=== PATIENT | female | born 1945 | race Caucasian/White ===

== ENCOUNTER → 2018-04-18 09:47 | Outpatient (CLI) | payer MEDICARE, OTHER, SELFPAY ==
[2018-04-18 10:58] LABS: Alanine Aminotransferase 40 IU/L (9-52); Albumin Globulin Ratio 1.4 (1.0-2.8); Alkaline Phosphatase 99 U/L (38-126); Aspartate Aminotransferase 31 IU/L (14-36); BUN Creatinine Ratio 37.8 (6-22); Bilirubin Total 0.7 mg/dL (0.2-1.3); Blood Urea Nitrogen 34 mg/dL (7-17); Calcium 9.4 mg/dL (8.4-10.2); Carbon Dioxide 27 mmol/L (22-32); Chloride 102 mmol/L (98-107); Cholesterol 148 mg/dL (140-199); Estimated Glomerular Filt Rate > 60.0 mL/min (>60); Globulin 2.9 g/dL (1.7-4.1); Glucose 148 mg/dL (80-110); HDL Cholesterol 52 mg/dL (40-60); HEMOLYSIS 22 (0-50); LDL Cholesterol Calculated 66 mg/dL (<100); Sodium 139 mmol/L (137-145); Total Protein 6.9 g/dL (6.3-8.2); Triglycerides 148 mg/dL (35-150); Uric Acid 5.8 mg/dL (2.5-6.2)
[2018-04-18 11:26] LABS: Hemoglobin A1C% w Est Avg Glu 6.8 % (4.0-6.0)
[2018-04-18 12:02] LABS: Thyroid Stimulating Hormone 2.31 uIU/mL (0.47-4.68)
[2018-04-18 12:07] LABS: Creatinine Urine Random 93.2 mg/dL
[2018-04-18 12:11] LABS: Microalbumi Creatinin Ratio Ur 11.8 ug/mg CR (<30); Microalbumin Urine Random 1.1 mg/dL (0-1.6)
== END ==
PROVIDERS: Family Provider Physician Assistant; PCP Physician Assistant; Visit Provider Physician Assistant
DX: I10 Essential (primary) hypertension (principal); M10.9 Gout, unspecified; E03.9 Hypothyroidism, unspecified; E11.9 Type 2 diabetes mellitus without complications; E79.0 Hyperuricemia without signs of inflammatory arthritis and tophaceous disease
CPT/HCPCS: 36415; 80053; 80061; 82043; 82570; 83036; 84443; 84550

== ENCOUNTER → 2018-08-29 09:09 | Outpatient (CLI) | payer MEDICARE, OTHER, SELFPAY ==
[2018-08-29 10:08] LABS: Hemoglobin A1C% w Est Avg Glu 6.5 % (4.0-6.0)
[2018-08-29 10:12] LABS: Blood Urea Nitrogen 31 mg/dL (7-17); Calcium 9.2 mg/dL (8.4-10.2); Carbon Dioxide 27 mmol/L (22-32); Chloride 102 mmol/L (98-107); Estimated Glomerular Filt Rate 54.1 mL/min (>60); Glucose 151 mg/dL (80-110); HEMOLYSIS < 15 (0-50); Sodium 142 mmol/L (137-145)
== END ==
PROVIDERS: Family Provider Physician Assistant; PCP Physician Assistant; Visit Provider Physician Assistant
DX: E11.9 Type 2 diabetes mellitus without complications (principal); I10 Essential (primary) hypertension
CPT/HCPCS: 36415; 80048; 83036

== ENCOUNTER → 2018-09-10 11:44 | Outpatient (CLI) | payer MEDICARE, OTHER, SELFPAY ==
[2018-09-12 15:18] LABS: Fecal Immunochemical Test NOT DETECTED
== END ==
PROVIDERS: PCP Physician Assistant; Visit Provider Physician Assistant
DX: Z12.11 Encounter for screening for malignant neoplasm of colon (principal)
CPT/HCPCS: 82274

== ENCOUNTER → 2018-09-28 13:20 | Outpatient (CLI) | payer MEDICARE, OTHER, SELFPAY ==
--- NOTE | 2018-09-28 13:21 | DI.MG.S_ITS ---
BILATERAL DIGITAL SCREENING MAMMOGRAM 3D/2D WITH CAD: 09/28/2018 CLINICAL: Routine screening. Family history of breast cancer. Comparison is made to exams dated: 09/14/2017 mammogram, 09/12/2016 mammogram, and 09/10/2015 mammogram - [facility]. There are scattered fibroglandular elements in both breasts. Current study was also evaluated with a Computer Aided Detection (CAD) system. There are benign calcifications in both breasts. No significant masses, calcifications, or other findings are seen in either breast. There has been no significant interval change. IMPRESSION: There is no mammographic evidence of malignancy. A 1 year screening mammogram is recommended. This exam was interpreted at Station ID: [id number]. NOTE: For mammograms, a report in lay terms will be sent to the patient. Approximately 15% of breast malignancies will not be visualized mammographically. In the management of a palpable breast mass, a negative mammogram must not discourage biopsy of a clinically suspicious lesion. Electronically Signed By: Carter couch/joe:09/28/2018 16:42:17 letter sent: Normal Exam ACR BI-RADS Category 2: Benign Finding(s) 3342F
== END ==
PROVIDERS: Family Provider Physician Assistant; PCP Physician Assistant; Visit Provider Physician Assistant
DX: Z12.31 Encounter for screening mammogram for malignant neoplasm of breast (principal); Z80.3 Family history of malignant neoplasm of breast
CPT/HCPCS: 77063; 77067

== ENCOUNTER → 2018-11-14 10:03 | Outpatient (CLI) | payer MEDICARE, OTHER, SELFPAY ==
[2018-11-14 12:07] LABS: Blood Urea Nitrogen 22 mg/dL (7-17); Calcium 9.8 mg/dL (8.4-10.2); Carbon Dioxide 29 mmol/L (22-32); Chloride 98 mmol/L (98-107); Estimated Glomerular Filt Rate 54.1 mL/min (>60); Glucose 150 mg/dL (80-110); HEMOLYSIS < 15 (0-50); Potassium 4.3 mmol/L (3.4-5.1); Sodium 139 mmol/L (137-145)
== END ==
PROVIDERS: Family Provider Physician Assistant; PCP Physician Assistant; Visit Provider Physician Assistant
DX: E11.9 Type 2 diabetes mellitus without complications (principal); I10 Essential (primary) hypertension
CPT/HCPCS: 36415; 80048

== ENCOUNTER → 2019-04-25 09:16 | Outpatient (CLI) | payer MEDICARE, OTHER, SELFPAY ==
[2019-04-25 11:34] LABS: BUN Creatinine Ratio 28.9 (6-22); Blood Urea Nitrogen 26 mg/dL (7-17); Calcium 9.5 mg/dL (8.4-10.2); Carbon Dioxide 28 mmol/L (22-32); Chloride 102 mmol/L (98-107); Estimated Glomerular Filt Rate > 60.0 mL/min (>60); Glucose 137 mg/dL (80-110); HEMOLYSIS < 15 (0-50); Potassium 4.8 mmol/L (3.4-5.1); Sodium 139 mmol/L (137-145)
== END ==
PROVIDERS: PCP Physician Assistant; Visit Provider Physician Assistant
DX: E11.9 Type 2 diabetes mellitus without complications (principal); I10 Essential (primary) hypertension; R94.4 Abnormal results of kidney function studies
CPT/HCPCS: 36415; 80048

== ENCOUNTER → 2019-05-29 08:54 | Outpatient (CLI) | payer MEDICARE, OTHER, SELFPAY ==
[2019-05-29 09:52] LABS: Alanine Aminotransferase 27 IU/L (9-52); Albumin Globulin Ratio 1.4 (1.0-2.8); Alkaline Phosphatase 110 U/L (38-126); Aspartate Aminotransferase 26 IU/L (14-36); Bilirubin Total 0.7 mg/dL (0.2-1.3); Bilirubin Unconjugated 0.5 mg/dL (0.0-1.1); Cholesterol 155 mg/dL (140-199); Globulin 2.8 g/dL (1.7-4.1); HDL Cholesterol 53 mg/dL (40-60); HEMOLYSIS < 15 (0-50); LDL Cholesterol Calculated 60 mg/dL (<100); Total Protein 6.8 g/dL (6.3-8.2); Triglycerides 208 mg/dL (35-150); Uric Acid 5.1 mg/dL (2.5-6.2)
[2019-05-29 10:23] LABS: Thyroid Stimulating Hormone 2.01 uIU/mL (0.47-4.68)
[2019-05-29 16:04] LABS: Creatinine Urine Random 123.6 mg/dL
[2019-05-29 16:06] LABS: Microalbumi Creatinin Ratio Ur 17.7 ug/mg CR (<30); Microalbumin Urine Random 2.2 mg/dL (0-1.6)
== END ==
PROVIDERS: PCP Physician Assistant; Visit Provider Physician Assistant
DX: E03.9 Hypothyroidism, unspecified (principal); E11.9 Type 2 diabetes mellitus without complications; E79.0 Hyperuricemia without signs of inflammatory arthritis and tophaceous disease; I10 Essential (primary) hypertension
CPT/HCPCS: 36415; 80061; 80076; 82043; 82570; 83036; 84443; 84550

== ENCOUNTER → 2019-08-27 10:13 | Outpatient (CLI) | payer MEDICARE, OTHER, SELFPAY ==
[2019-08-27 12:30] LABS: Hemoglobin A1C% w Est Avg Glu 6.3 % (4.0-6.0)
== END ==
PROVIDERS: PCP Physician Assistant; Visit Provider Physician Assistant
DX: E11.9 Type 2 diabetes mellitus without complications (principal); I10 Essential (primary) hypertension
CPT/HCPCS: 83036

== ENCOUNTER → 2019-09-16 12:22 | Outpatient (CLI) | payer MEDICARE, OTHER, SELFPAY ==
[2019-09-18 17:40] LABS: Fecal Immunochemical Test NOT DETECTED (NOT DETECTED)
== END ==
PROVIDERS: PCP Physician Assistant; Visit Provider Physician Assistant
DX: Z12.11 Encounter for screening for malignant neoplasm of colon (principal)
CPT/HCPCS: 82274

== ENCOUNTER → 2019-09-30 11:30 | Outpatient (CLI) | payer MEDICARE, OTHER, SELFPAY ==
--- NOTE | 2019-09-30 11:32 | DI.MG.S_ITS ---
BILATERAL DIGITAL SCREENING MAMMOGRAM 3D/2D WITH CAD: 09/30/2019 CLINICAL: Routine screening. Family history of breast cancer. Comparison is made to exams dated: 09/28/2018 mammogram, 09/14/2017 mammogram, 09/12/2016 mammogram, 09/10/2015 mammogram, and 09/08/2014 mammogram - [facility]. There are scattered fibroglandular elements in both breasts. Current study was also evaluated with a Computer Aided Detection (CAD) system. There are benign calcifications in both breasts. No significant masses, calcifications, or other findings are seen in either breast. There has been no significant interval change. IMPRESSION: There is no mammographic evidence of malignancy. A 1 year screening mammogram is recommended. This exam was interpreted at Station ID: [id number]. NOTE: For mammograms, a report in lay terms will be sent to the patient. Approximately 15% of breast malignancies will not be visualized mammographically. In the management of a palpable breast mass, a negative mammogram must not discourage biopsy of a clinically suspicious lesion. Electronically Signed By: Roddy gupta/joe:09/30/2019 17:43:31 letter sent: Normal Exam ACR BI-RADS Category 2: Benign Finding(s) 3342F
== END ==
PROVIDERS: PCP Physician Assistant; Visit Provider Physician Assistant
DX: Z12.31 Encounter for screening mammogram for malignant neoplasm of breast (principal); Z80.3 Family history of malignant neoplasm of breast; M81.0 Age-related osteoporosis without current pathological fracture; Z78.0 Asymptomatic menopausal state; E11.9 Type 2 diabetes mellitus without complications; E07.9 Disorder of thyroid, unspecified; Z82.62 Family history of osteoporosis
CPT/HCPCS: 77063; 77067; 77080

== ENCOUNTER → 2020-06-05 15:20 | Outpatient (CLI) | payer MEDICARE, OTHER, SELFPAY ==
[2020-06-05 16:39] LABS: Add Manual Diff / Slide Review NO; Basophils Absolute Auto 100 /uL (0-100); Basophils Percent Auto 0.9 % (0-2); Eosinophils Absolute Auto 100 /uL (0-450); Eosinophils Percent Auto 0.7 % (2-4); Hematocrit 43.1 % (36-46); Lymphocytes Absolute Auto 1900 /uL (1100-4500); Lymphocytes Percent Auto 25.3 % (25-40); Mean Corpuscular HGB Conc 34.7 % (30-36); Mean Corpuscular Hemoglobin 31.9 PG (26-34); Monocytes Absolute Auto 500 /uL (0-900); Neutrophils Absolute Auto 4900 /uL (1500-7000); Neutrophils Percent Auto 66.1 % (50-75); Platelet Count 218 X10^3/uL (150-400); Red Blood Cell Count 4.69 X10^6/uL (4.0-5.2); Red Cell Distribution Width 14.1 % (11.6-14.8); White Blood Cell Count 7.5 X10^3/uL (4.5-11.0)
[2020-06-05 16:45] LABS: Hemoglobin A1C% w Est Avg Glu 6.7 % (4.0-6.0)
[2020-06-05 16:51] LABS: Carbon Dioxide 29 mmol/L (22-32); Chloride 101 mmol/L (98-107); HEMOLYSIS < 15 (0-50); Potassium 4.2 mmol/L (3.4-5.1); Sodium 136 mmol/L (137-145)
== END ==
PROVIDERS: PCP Nurse Practitioner Family; Referring Provider Orthopaedic Surgery; Visit Provider Orthopaedic Surgery
DX: Z01.818 Encounter for other preprocedural examination (principal); Z01.812 Encounter for preprocedural laboratory examination; R73.9 Hyperglycemia, unspecified
CPT/HCPCS: 36415; 80051; 83036; 85025; 93005

== ENCOUNTER → 2020-06-12 10:30 | Outpatient (CLI) | payer MEDICARE, OTHER, SELFPAY ==
[2020-06-12 11:04] LABS: RBC Urine None Seen (0-5/HPF)
[2020-06-12 12:04] LABS: Appearance Urine UA CLEAR; Bilirubin Urine UA NEGATIVE (NEGATIVE); Color Urine UA YELLOW; Glucose Urine UA NEGATIVE (Negative); Ketones Urine UA NEGATIVE (NEGATIVE); Leukocyte Esterase Urine UA NEGATIVE (NEGATIVE); Nitrite Urine UA NEGATIVE (Negative); Occult Blood Urine UA NEGATIVE (Negative); Protein Urine UA NEGATIVE (Negative); Urobilinogen Urine UA 0.2 E.U./dL (0.2)
[2020-06-12 12:17] LABS: Amorphous Sediment Urine 1+; Bacteria Urine Occasional (0-1); Culture Indicated Urine Cult Not Indicated; Squamous Epithelial Cell Urine 5-10 /HPF (0-5/HPF); WBC Urine 0-1/HPF (0-5/HPF)
[2020-06-12 12:26] LABS: Alanine Aminotransferase 25 IU/L (<35); Albumin 4.1 g/dL (3.5-5.0); Albumin Globulin Ratio 1.7 (1.0-2.8); Alkaline Phosphatase 105 U/L (38-126); Aspartate Aminotransferase 26 IU/L (14-36); BUN Creatinine Ratio 22.2 (6-22); Bilirubin Total 0.8 mg/dL (0.2-1.3); Blood Urea Nitrogen 20 mg/dL (7-17); Calcium 9.9 mg/dL (8.4-10.2); Carbon Dioxide 31 mmol/L (22-32); Chloride 101 mmol/L (98-107); Estimated Glomerular Filt Rate > 60.0 mL/min (>60); Globulin 2.4 g/dL (1.7-4.1); Glucose 153 mg/dL (80-110); HEMOLYSIS < 15 (0-50); Potassium 4.3 mmol/L (3.4-5.1); Sodium 136 mmol/L (137-145); Total Protein 6.5 g/dL (6.3-8.2)
== END ==
PROVIDERS: PCP Nurse Practitioner Family; Referring Provider Nurse Practitioner Family; Visit Provider Nurse Practitioner Family
DX: Z00.00 Encounter for general adult medical examination without abnormal findings (principal); Z01.818 Encounter for other preprocedural examination
CPT/HCPCS: 36415; 80053; 81001

== ENCOUNTER → 2020-06-28 17:56 | Outpatient (ROUT) | payer MEDICARE, OTHER, SELFPAY ==
[2020-06-29 22:54] LABS: COVID19 Sendout Not Detected (Not Detected)
== END ==
PROVIDERS: PCP Nurse Practitioner Family; Visit Provider Physician Assistant
DX: Z11.59 Encounter for screening for other viral diseases (principal)
CPT/HCPCS: 87635

== ENCOUNTER 2020-07-02 12:44 | Inpatient (IN) | payer MEDICARE, OTHER, SELFPAY ==
[2020-06-23 13:52] VITALS: BMI 40.8
[2020-07-01] VITALS (13 sets, daily range): BP systolic 123–150; BP diastolic 57–89; PULSE 77–102; RESP 11–20; TEMP 36.2–37.3; O2SAT 91–97; BMI 40.8
--- NOTE | 2020-07-01 06:00 | DI.RAD.S_ITS ---
PROCEDURE: XR KNEE LT 1TO2V INDICATIONS: post op films TECHNIQUE: To view(s) of the knee acquired. COMPARISON: None. FINDINGS: Bones: Patient is status post knee joint arthroplasty. Hardware components are in expected positions. Visualized bony structures are intact. Soft tissues: Overlying postoperative changes are noted. IMPRESSION: Normal alignment after left total knee arthroplasty. Dictated by: Fam Stevens M.D. on 07/02/2020 at 8:07 Approved by: Fam Stevens M.D. on 07/02/2020 at 8:07
[2020-07-01] MEDS: LACTATED RINGERS 1,000 ML 42 ML IV (12:14)
[2020-07-01] MEDS: ACETAMINOPHEN 325 MG TABLET 975 MG PO (12:20)
[2020-07-01] MEDS: CELECOXIB 200 MG CAPSULE PO (12:21)
[2020-07-01] MEDS: PREGABALIN 75 MG CAPSULE PO (12:21)
--- NOTE | 2020-07-01 12:58 | PM.PREOP ---
Pre-operative Note COVID-19 COVID-19 status: Negative Result date/Date tested (Pos, Neg/Pending): 06/28/20 Interval Note History & Physical reviewed/Exam performed by Physician: Yes Changes to H&P: No
--- NOTE | 2020-07-01 12:59 | PM.OP.1 ---
Operative Date/Time/Diagnoses Date of procedure: 07/01/20 Time of procedure: 16:20 Pre-op diagnosis: Left knee osteoarthritis Post-op diagnosis: same Procedure & Clinicians Procedure: Left total knee arthroplasty Same procedure as scheduled: Yes Indications: The patient presents today for total knee arthroplasty after failure of conservative treatment. The nature of the procedure including the risks and benefits, alternatives, postoperative course and expected outcome were discussed and all questions answered. Consent was obtained. Operative site confirmed and marked. Surgeon: Carter Urban Belt Machine Operator: Michael Weiner Anesthesia Type: General, Spinal and Local Operative Notes Closure Type: primary Specimen(s): none sent Prosthetic devices, grafts, tissues, transplants, or devices: [facility] BCS: 5 femoral component, 4 tibial component, 9 mm BCS polyethylene tray and 35 x 9 mm round patella Applied: implant(s) Estimated Blood Loss (mL): 10 Blood products transfused: none Tourniquet time (min): 55 Procedure in detail: The patient was taken to the operative suite and placed under anesthesia. The patient was given prophylactic antibiotics prior to surgery. The patient was also given tranexamic acid, 1 g, just prior to surgery for postoperative hemostasis. The lateral knee was prepped and the joint injected with 20 mL of 1% Lidocaine with epinephrine. The knee was then prepped and draped in usual sterile fashion. The leg was exsanguinated with an Esmarch dressing and the tourniquet raised to 250 torr. A 15 cm anterior incision was made. Next a medial trivector arthrotomy was made. The extensor mechanism was marked to ensure accurate repair. Initial exposing dissection was carried out medially and laterally. The knee was then flexed and the intramedullary femoral guide justin placed. The distal femoral cut was made in 6? of valgus at the +0 position. The femoral size was measured and the appropriate cutting block was then placed and the anterior, posterior and chamfer cuts made. The intramedullary tibial alignment justin was then placed. The guide was set to remove approximately 11 mm from the less affected lateral side. The proximal tibial cut was then made with an oscillating saw. All meniscus and bony debris was then removed. Posterior femoral osteophytes removed with a curved osteotome. Flexion extension gaps were checked. No specific balancing was required other than routine exposure and removal of osteophytes. The soft tissues were then injected with a combination of 20 mL of half percent Marcaine with epinephrine and 20 mL of Exparel. The trial components were then placed. The knee was then extended and the patellar thickness was measured and a cut made removing approximately 9 mm of bone. The patella was then sized and drilled. Some excess lateral bone was excised and the patellofemoral ligament released. The knee went into full extension and flexion beyond 130?. There was good medial-lateral balance throughout motion. The knee was slightly tighter medially in flexion than extension. Patellar tracking was excellent. The trial components were removed and the knee was cleansed with Pulsavac irrigation and dried. The final components were cemented with high viscosity vacuum mixed bone cement with antibiotics. The joint was filled with a dilute Betadine solution. The knee was held in extension and the patellar clamped until the cement was adequately cured. The knee was then irrigated. The extensor mechanism was closed with 5 interrupted #1 Vicryl sutures and a running Quill suture at approximately 90 degrees of flexion. The joint was then injected with a combination of 1 g of tranexamic acid and 20 mL of quarter percent Marcaine with epinephrine. The subcutaneous tissue was closed with 2 0 Vicryl. The skin was closed with absorbable subcuticular sutures and surgical adhesive. An benjamin dressing and Jaxon wrap were then applied. The patient tolerated the procedure well and was returned to recovery room in good condition. Complications: none Post-operative Condition: stable Disposition: PACU Plan for aftercare: [facility] Protocol.
[2020-07-01] MEDS: CLINDAMYCIN 900 MG/50 ML PIGGYBACK 50 MG IV (15:10)
[2020-07-01] MEDS: LIDOCAINE 1% W/EPI 20 ML INJ (15:15)
[2020-07-01] MEDS: TRANEXAMIC ACID 1,000 MG VIAL 1000 MG INJ (15:25)
--- NOTE | 2020-07-01 15:34 | SUR.OPER ---
Supine on padded OR bed. Pillow under head, arms secured on padded armboards <90 degree abduction. Safety belt across torso. Non-operative leg secured with tape over blanket over lower leg. Operative leg secured in DeMayo/Parmjit positioner. Foam padded brace at thigh of operative leg.
[2020-07-01] MEDS: BUPIVACAINE 0.25% W/ EPI (PF) 40 ML, BUPIVACAINE LIPOSOME 266 MG, SODIUM CHLORIDE 0.9% ... INJ (15:48)
[2020-07-01] MEDS: BUPIVACAINE 0.25% W/ EPI (PF) 20 ML, TRANEXAMIC ACID 1,000 MG, SODIUM CHLORIDE 0.9% 10 ML INJ (15:49)
[2020-07-01] MEDS: ONDANSETRON 4 MG/2 ML INJ IV (16:50)
[2020-07-01] MEDS: HYDROMORPHONE 2 MG INJ IV (16:50)
[2020-07-01] MEDS: hydrOXYzine 50 MG/ML INJ 25 MG IM (16:51)
[2020-07-01] MEDS: OXYCODONE IR 5 MG TABLET PO (17:09)
[2020-07-01] MEDS: METFORMIN XR 500 MG TABLET PO (18:37)
[2020-07-01] MEDS: LACTATED RINGERS 1,000 ML 100 ML IV (18:37)
[2020-07-01] MEDS: IBUPROFEN 400 MG TABLET PO ×2 (18:37→21:24)
[2020-07-01] MEDS: DOCUSATE 100 MG CAPSULE PO (21:23)
[2020-07-01] MEDS: ACETAMINOPHEN 325 MG TABLET 650 MG PO (21:23)
[2020-07-01] MEDS: ASPIRIN EC 81 MG TABLET PO (21:23)
[2020-07-01] MEDS: CLINDAMYCIN 600 MG/50 ML PIGGYBACK 50 MG IV (23:00)
[2020-07-02] VITALS (8 sets, daily range): BP systolic 106–130; BP diastolic 57–65; PULSE 67–78; RESP 15–17; TEMP 36.3–37.2; O2SAT 91–98
[2020-07-02] MEDS: IBUPROFEN 400 MG TABLET PO ×6 (01:19→21:01)
[2020-07-02] MEDS: LEVOTHYROXINE 100 MCG TABLET PO (06:02)
[2020-07-02] MEDS: CLINDAMYCIN 600 MG/50 ML PIGGYBACK 50 MG IV (06:02)
[2020-07-02] MEDS: hydroCHLOROthiazide 25 MG TABLET PO (08:34)
[2020-07-02] MEDS: lisinopriL 10 MG TABLET PO (08:34)
[2020-07-02] MEDS: DOCUSATE 100 MG CAPSULE PO ×2 (08:34→21:01)
[2020-07-02] MEDS: AMLODIPINE 5 MG TABLET 10 MG PO (08:34)
[2020-07-02] MEDS: ACETAMINOPHEN 325 MG TABLET 650 MG PO ×3 (08:34→21:01)
[2020-07-02] MEDS: ASPIRIN EC 81 MG TABLET PO ×2 (08:34→21:01)
[2020-07-02] MEDS: allopurinoL 300 MG TABLET PO (08:36)
--- NOTE | 2020-07-02 09:07 | CM.DANOTE ---
DCP: Case received, EMR reviewed and met with patient. Introduced self and role. Was able to meet with patient and obtain information regarding patient's baseline activity status and living situation prior to surgery. DCP assessment completed with information currently available. Patient is a 74 year old female who admitted yesterday morning to the care of the orthopedic team. PCP: MARLY Dunaway. Payer: confirmed: Medicare/[facility]. Patient came to the hospital via private vehicle for a surgical procedure. She had left knee arthroplasty. Patient has history of osteoarthritis. Met with patient in her room. She was sitting up in bed having her breakfast. Pleasant, alert and oriented. She has not yet worked with P.T. She resides in [place] alone, but has s son, Sacha, that lives in [place] as well. Patient is planning on having a friend stay with her for a while. She is independent at baseline. She indicated that her son built her a ramp to enter the home. She also has some grab bars in her home from when her mother lived with her. P: DCP to continue to follow. P.T. will be working with her. She should be able to go home when she is medically stable and cleared by P.T. Nisha Merchant RN/Religious Education Director
--- NOTE | 2020-07-02 09:15 | PT.IIE ---
Current Diagnoses Bilateral primary osteoarthritis of knee (07/01/20) Surgery Performed Operation Date: 07/01/20 13:15 Actual Procedures p Total Knee Arthroplasty(Left) - Carter Urban MD Surgical History (Last Updated 06/23/20 @ 14:17 by Nai Marie RN) History of repair of pyloric stenosis (Resolved 1942) Hx of arthroscopy of left knee (Acute 2009) Hx of arthroscopy of right knee (Acute) Hx of bilateral cataract extraction (Acute 2016) Status post cholecystectomy Medical History (Last Updated 06/23/20 @ 14:23 by Nai Marie RN) Cerumen impaction (Acute) Diabetes (Chronic Unknown) Gout (Acute) Hearing impaired (Acute) Hypertension (Chronic Unknown) Hypothyroidism (Chronic Unknown) Osteoarthritis (Chronic Unknown) Osteopenia (Chronic Unknown) Pre-procedural examination (Acute) Screening for heart disease (Acute) Screening for malignant neoplasm of colon (Acute) Sinus drainage (Acute) Urinary incontinence (Acute) Physical Therapy Inpatient Evaluation/Re-Eval M1 PT/OT-IP Prior Functional Status Start: 07/02/20 11:29 Freq: NEEDED Status: Active Protocol: Document 07/02/20 09:15 AB (Rec: 07/02/20 11:40 AB [id number]) Medical Review Prior Functional Status Medical History Reviewed Yes Communication able to make needs known Mobility and Gait Pt stated that she is independent with all mobilities and ambulation without AD Social History Household Members none Living Arrangements House Number of Floors (Floors) One Floor Number of Stairs To Enter/Railing? ramp to enter Home Environment Standard Height Toilet,Tub/ Shower,Ramp Home Equipment Front Wheel Walker,Straight Cane,Raised Toilet Seat w/ Armrests,Shower Seat without Backrest,Hand Held Shower,Grab Bars Near Toilet,Grab Bars In Shower Employment Status Retired Additional Social History Comment stated that she has friends that will assist and stay with her to assist her as long as needed M2 PT-IP Current Condition Start: 07/02/20 11:29 Freq: NEEDED Status: Active Protocol: Document 07/02/20 09:15 AB (Rec: 07/02/20 11:40 AB [email or web address]) Physical Therapy Current Condition Current Condition Evaluation Date 07/02/20 Treatment Diagnosis s/p L TKA; difficulty in walking Onset Date 07/01/20 Weight Bearing Status Weight Bearing Status Weight Bear as Tolerated Allowed Weight Bearing Amount (enter % LLE WBAT or #) (%) M3 PT-IP Subjective Start: 07/02/20 11:29 Freq: NEEDED Status: Active Protocol: Document 07/02/20 09:15 AB (Rec: 07/02/20 11:40 AB [email or web address]) Subjective Physical Therapy Visit Type Type Initial Evaluation Visit Start Time 09:15 Visit Stop Time 09:53 Total Visit Minutes 38 Number of ACCOUNT SERVICES MANAGER Visits 0 Physical Therapy Visit Comments Patient Comments pt is agreeable to do PT Therapy Pain Assessment Pain When Pain Assessed During Mobility Pain Present Pain Present Pain Reported Location Left Knee Intensity 3 Scale Used Numeric (0 - 10) Pain Management Techniques Apply Cold,Modification of Treatment,Re-positioning, Timing of Activity with Medications M4 PT-IP Mobility and Gait Start: 07/02/20 11:29 Freq: NEEDED Status: Active Protocol: Document 07/02/20 09:15 AB (Rec: 07/02/20 11:40 [email or web address]) PT-Bed Mobility Assessment Supine to Sit Supine to Sit Standby Assistance,1 Person Assistance PT-Transfer Assessment Sit to and From Stand Sit to and from Stand Minimal Assistance,1 Person Assistance,Use of Upper Extremities Equipment Transfer Assistive Device Gait Belt,Front Wheeled Walker Orthotic/Prosthetic Devices or Brace: No Transfers Transfer Destination Chair Transfer Technique ambulated using FWW Transfer Ability Level of Assist Minimal Assistance,1 Person Assistance,Use of Upper Extremities Comments Mobility Comments completed supine to sit SBA. pt was able to sit on EOB SBA. completed sit to stand min A and cues for techniques. ambulated in room ~ 40 ft using FWW min A and cues for L quads activation. agreed to sit up on chair. positioned on chair. call ight and table placed within reach. Gait Assessment Gait Gait Assistance Required: Minimum Assistance Distance (Feet) 40 Able to Maintain Weight Bearing Status Yes During Gait Assistive Devices Assistive Device Gait Belt,Front Wheeled Walker Orthotic/Prosthetic Devices or Brace: No Gait Deviations General Gait Pattern Antalgic,Step-to Gait Factors Limiting Gait Function Factors Limiting Gait Function Decreased Activity Tolerance, Decreased Strength,Difficulty Following Directions,Limited Range of Motion,Pain,Poor Balance,Poor Safety Awareness PT-Balance Assessment Sitting Balance and Reactions Static Sitting Balance Ability Normal Dynamic Sitting Balance Ability Good Standing Balance and Reactions Static Standing Balance Ability Fair Dynamic Standing Balance Ability Fair Device Used FWW M5 PT-IP Objective Assessments Start: 07/02/20 11:29 Freq: NEEDED Status: Active Protocol: Document 07/02/20 09:15 AB (Rec: 07/02/20 11:40 AB [email or web address]) Orientation Orientation/Cognition Level of Alertness Alert Orientation Name,Place,Situation Language Function Ability Hard of Hearing Safety Awareness Understands Safety Issues Memory Description No Deficits Noted Gross Range of Motion Lower Extremity ROM Assessment Left Impaired Impairments L knee flexion: ~ 70 deg Strength Lower Extremity Strength Assessment Left Impaired Hip 4-/5 Knee 3+/5 Coordination Assessment Gross Coordination Gross Coordination WNL Sensation Assessment Sensation Gross Sensation WNL Muscle Tone Muscle Tone WNL Yes M6 PT-IP Treatment Start: 07/02/20 11:29 Freq: NEEDED Status: Active Protocol: Document 07/02/20 09:15 AB (Rec: 07/02/20 11:40 AB [email or web address]) Physical Therapy Treatment Exercises Exercises Heel Slides Education Education Provided Precautions,Weight Bearing Status,Post-Op Packet,Safety M7 PT-IP Assessment and Plan Start: 07/02/20 11:29 Freq: NEEDED Status: Active Protocol: Document 07/02/20 09:15 AB (Rec: 07/02/20 11:40 AB [email or web address]) PT Summary Assessment and Plan Potential Rehabilitation Potential Good Status of Condition at Evaluation Stable Summary Impairments Pain,ROM,Strength,Balance,Bed Mobility,Transfers,Gait, Activity Tolerance Assessment Summary pt requiring min A with mobility and will likely progress during hospital stay. pt will have her friends assist her at home and stated that she is set up for outpt PT already. will conduct caregiver training if appropriate. Goals Bed Mobility Goal Independent Transfer Goal Independent,Front Wheeled Walker Gait Goal Independent,Front Wheel Walker Gait Distance 150 Days to Meet Goals 3 Frequency of Treatment Frequency Of Treatment Twice a Day Treatment Plan Physical Therapy Treatment Plan Bed Mobility Training,Transfer Training,Gait Training, Therapeutic Exercise,Balance Retraining,Post Op Education, Discharge Planning,Hot or Cold Pack,Neuromuscular Re-ed, Coordination Retraining,Manual Therapy Other Recommendations and Next Treatment ambulation Focus Recommendations To Nursing Amount of Assist Needed 1 Person Assist Discharge Recommendations PT Discharge Recommendations Home with Assistance, Outpatient PT Transportation Needs at Discharge Private Vehicle
--- NOTE | 2020-07-02 09:25 | PM.PNPO.1 ---
Subjective Subjective Date Patient Seen: 07/02/20 Time Patient Seen: 09:25 Interval history: Patient denies fever chills. No nausea /vomiting. Pain is mild. Patient did not have physical therapy yesterday. Patient lives alone and will have friends assist her during the day as well as at night. Exam Vital Signs (past 8 hours): - 07/02/20 05:34 07/02/20 08:19 07/02/20 08:20 Temperature 97.7 F Pulse Rate 67 Respiratory Rate 16 16 Blood Pressure 118/61 Pulse Oximetry 95 98 94 Oxygen Delivery Method Room Air Oxygen Flow Rate 1 Narrative Exam Narrative: Pleasant 74-year-old female resting in bed in no apparent distress. Left knee dressing is clean, dry and intact. Mauro is on and functioning. Left leg is warm and dry. Motor functions intact bilateral lower extremities. Sensation grossly intact to light touch bilateral lower extremities. Objective Labs Result Diagrams: 07/02/20 05:50 Labs: Laboratory Results - last 24 hr 07/02/20 05:50 Hgb 13.0 Hct 38.0 Assessment & Plan Post-op Postoperative Procedures: Procedures Operation Date: 07/01/20 13:15 Actual Procedures Side Surgeon p Total Knee Arthroplasty Left Carter Urban MD Postop day 1 status post left total knee arthroplasty. Mobilize with physical therapy. Patient lives alone and is going to be relying on friends to assist her at home. Likely discharge home in 1-2 days. Quality VTE Deep Vein Thrombosis/Pulmonary Embolism Present on Admission: No
[2020-07-02] MEDS: OXYCODONE IR 5 MG TABLET PO (12:46)
--- NOTE | 2020-07-02 12:50 | PT.IPTN ---
Current Diagnoses Bilateral primary osteoarthritis of knee (07/02/20) Surgery Performed Operation Date: 07/01/20 13:15 Actual Procedures p Total Knee Arthroplasty(Left) - Carter Urban MD Physical Therapy Treatment Note M2 PT-IP Current Condition Start: 07/02/20 11:29 Freq: NEEDED Status: Active Protocol: Document 07/02/20 09:15 AB (Rec: 07/02/20 11:40 AB [email or web address]) Physical Therapy Current Condition Current Condition Evaluation Date 07/02/20 Treatment Diagnosis s/p L TKA; difficulty in walking Onset Date 07/01/20 Weight Bearing Status Weight Bearing Status Weight Bear as Tolerated Allowed Weight Bearing Amount (enter % LLE WBAT or #) (%) M3 PT-IP Subjective Start: 07/02/20 11:29 Freq: NEEDED Status: Active Protocol: Document 07/02/20 12:50 AB (Rec: 07/02/20 15:00 AB [email or web address]) Subjective Physical Therapy Visit Type Type Treatment Note Visit Start Time 12:50 Visit Stop Time 13:21 Total Visit Minutes 31 Number of UI ARCHITECT Visits 0 Physical Therapy Visit Comments Patient Comments Pt is agreeable to do PT Therapy Pain Assessment Pain When Pain Assessed At Rest Pain Present Pain Present Pain Reported Location Left Knee Intensity 2 Scale Used Numeric (0 - 10) Pain Management Techniques Modification of Treatment,Re- positioning,Timing of Activity with Medications M4 PT-IP Mobility and Gait Start: 07/02/20 11:29 Freq: NEEDED Status: Active Protocol: Document 07/02/20 12:50 AB (Rec: 07/02/20 15:00 AB [email or web address]) PT-Transfer Assessment Sit to and From Stand Sit to and from Stand Contact Guard Assistance,1 Person Assistance,Use of Upper Extremities Equipment Transfer Assistive Device Gait Belt,Front Wheeled Walker Transfers Transfer Destination Toilet Transfer Technique ambulated using FWW Transfer Ability Level of Assist Contact Guard Assistance, Minimal Assistance,1 Person Assistance,Use of Upper Extremities Comments Mobility Comments pt sitting on chair. completed LAQs and ankle pumps prior to mobilizing. completed sit to stand CGA and cues and ambulated in the hallway using FWW ~75 ft CGA to min A and cues for L quads activation. ambulated back to her room and requested to use the toilet. ambulated towards the toilet using FWW CGA to min A. completed sit to stand from the toilet using grab bar CGA and ambulated towards the sink CGA using FWW . pt was able to maintain standing SBA while completing handwashing. ambulated back to the chair using CGA. positioned on chair. call light and table placed within reach. Gait Assessment Gait Gait Assistance Required: Contact Guard Assist,Minimum Assistance Distance (Feet) 75 Able to Maintain Weight Bearing Status Yes During Gait Assistive Devices Assistive Device Gait Belt,Front Wheeled Walker Orthotic/Prosthetic Devices or Brace: No Gait Deviations General Gait Pattern Antalgic,Decreased Stride Length,Decreased Feet Clearance,Step-to Gait Factors Limiting Gait Function Factors Limiting Gait Function Decreased Activity Tolerance, Decreased Strength,Limited Range of Motion,Pain,Poor Balance,Poor Safety Awareness Comments Gait Comments pls refer to mobility section for details M5 PT-IP Objective Assessments Start: 07/02/20 11:29 Freq: NEEDED Status: Active Protocol: Document 07/02/20 09:15 AB (Rec: 07/02/20 11:40 AB [email or web address]) Orientation Orientation/Cognition Level of Alertness Alert Orientation Name,Place,Situation Language Function Ability Hard of Hearing Safety Awareness Understands Safety Issues Memory Description No Deficits Noted Gross Range of Motion Lower Extremity ROM Assessment Left Impaired Impairments L knee flexion: ~ 70 deg Strength Lower Extremity Strength Assessment Left Impaired Hip 4-/5 Knee 3+/5 Coordination Assessment Gross Coordination Gross Coordination WNL Sensation Assessment Sensation Gross Sensation WNL Muscle Tone Muscle Tone WNL Yes M6 PT-IP Treatment Start: 07/02/20 11:29 Freq: NEEDED Status: Active Protocol: Document 07/02/20 12:50 AB (Rec: 07/02/20 15:00 AB [email or web address]) Physical Therapy Treatment Exercises Exercises Ankle Pumps Education Education Provided Weight Bearing Status,Safety Other Treatments Other Treatment Performed completed LAQs with 5 sec hold reviewed HEP M7 PT-IP Assessment and Plan Start: 07/02/20 11:29 Freq: NEEDED Status: Active Protocol: Document 07/02/20 12:50 AB (Rec: 07/02/20 15:00 AB [email or web address]) PT Summary Assessment and Plan Potential Rehabilitation Potential Good Summary Impairments Pain,ROM,Strength,Balance, Coordination,Sensation,Tone, Cognition,Bed Mobility, Transfers,Gait,Activity Tolerance Progress Towards Goals Progressing Toward Goals Assessment Summary pt is progressing with mobility, requiring CGA to occasional min A with ambulation. pt plans to go home and will have her friends to assist her at home. will contine to assess progress. Goals Bed Mobility Goal Independent Transfer Goal Independent,Front Wheeled Walker Gait Goal Independent,Front Wheel Walker Gait Distance 150 Days to Meet Goals 3 Frequency of Treatment Frequency Of Treatment Twice a Day Treatment Plan Physical Therapy Treatment Plan Bed Mobility Training,Transfer Training,Gait Training, Therapeutic Exercise,Balance Retraining,Post Op Education, Discharge Planning,Hot or Cold Pack,Neuromuscular Re-ed, Coordination Retraining,Manual Therapy Other Recommendations and Next Treatment ambulation Focus Recommendations To Nursing Amount of Assist Needed 1 Person Assist Discharge Recommendations PT Discharge Recommendations Home with Assistance, Outpatient PT Transportation Needs at Discharge Private Vehicle
[2020-07-02] MEDS: METFORMIN XR 500 MG TABLET PO (16:57)
[2020-07-03] MEDS: IBUPROFEN 400 MG TABLET PO ×4 (00:09→12:18)
[2020-07-03 03:00] VITALS: BP 122/64; PULSE 67; RESP 16; TEMP 36.3; O2SAT 95
[2020-07-03] MEDS: LEVOTHYROXINE 100 MCG TABLET PO (06:15)
[2020-07-03 07:50] VITALS: BP 122/67; PULSE 73; RESP 18; TEMP 36.6; O2SAT 95
[2020-07-03] MEDS: ACETAMINOPHEN 325 MG TABLET 650 MG PO (08:13)
[2020-07-03] MEDS: ASPIRIN EC 81 MG TABLET PO (08:16)
[2020-07-03] MEDS: lisinopriL 10 MG TABLET PO (08:16)
[2020-07-03] MEDS: hydroCHLOROthiazide 25 MG TABLET PO (08:16)
[2020-07-03] MEDS: DOCUSATE 100 MG CAPSULE PO (08:16)
[2020-07-03] MEDS: AMLODIPINE 5 MG TABLET 10 MG PO (08:16)
[2020-07-03] MEDS: allopurinoL 300 MG TABLET PO (08:16)
--- NOTE | 2020-07-03 08:22 | PM.DS.1 ---
History of Present Illness History of Present Illness Date Patient Seen: 07/03/20 Time Patient Seen: 08:22 Chief complaint: SDC *OPB* Narrative: Patient admitted on 07/01/2020 for left total knee arthroplasty. Discharge Providers Provider Date of admission: 07/02/20 12:44 Discharge Date: 07/03/20 Primary care physician: MARLY Dunaway Consults: 07/01/20 17:36 Consult to Discharge Planning Routine Comment: Consult to Physical Therapy Evaluate & Treat Comment: Physician Instructions: postop TKA protocol Consult to Respiratory Therapy Evaluate & Treat Comment: Physician Instructions: Evaluate and treat Discharge provider: Carter Urban MD Summary Hospital Course Discharge Diagnosis: Left knee osteoarthritis Hospital Course: Patient had a left total knee arthroplasty on 07/01/2020. She is ready for discharge today. Status at Discharge Cognitive/behavioral status at discharge: oriented Functional status at discharge: uses cane/walker Overall status at discharge: patient is progressing back to baseline Time Spent with Patient Time spent: Less than 30 minutes Exam Vital Signs (past 8 hours): - 07/03/20 03:00 Temperature 97.4 F L Pulse Rate 67 Respiratory Rate 16 Blood Pressure 122/64 Pulse Oximetry 95 Oxygen Delivery Method Room Air Oxygen Flow Rate 0 Narrative Exam Narrative: The dressing is intact. There is expected swelling. The leg is neurovascularly intact. Objective Labs Result Diagrams: 07/02/20 05:50 Discharge Assessment & Plan Assessment and Plan Assessment: Status post left total knee arthroplasty now ready for discharge. Plan of Treatment: Discharge home per [facility] Protocol. Discharge Plan Discharge orders & Medications Discharge Orders: Discharge (Order); Ordered 07/03/20 Ordered By: Carter Urban Prescriptions: Continued aspirin [Adult Low Dose Aspirin] 81 mg tablet,delayed release (DR/EC) 81 mg PO DAILY RF: 0 cholecalciferol (vitamin D3) 2,000 unit capsule 2,000 unit PO DAILY RF: 0 naproxen sodium [Aleve] 220 MG tablet 440 mg PO DAILY PRN (Reason: Pain) Qty: 0 RF: 0 (DME) One Touch Ultra Mini Tst Strips Qty: 100 RF: 3 (DME) Disabled Parking Placard Qty: 1 RF: 0 hydrochlorothiazide 25 mg tablet 25 mg PO DAILY Qty: 90 RF: 1 amlodipine 10 mg tablet 10 mg PO DAILY Qty: 90 RF: 1 allopurinol 300 mg tablet 300 mg PO QDAY Qty: 90 RF: 1 lisinopril 10 mg tablet 10 mg PO Q DAY Qty: 90 RF: 0 metformin 500 mg tablet extended release 24 hr 500 mg PO QPM Qty: 90 RF: 0 levothyroxine 100 mcg tablet 100 mcg PO DAILY Qty: 90 RF: 1 clotrimazole-betamethasone 1-0.05 % cream 1 applictn TOP ONCE PRN (Reason: itching) Qty: 45 RF: 1 multivitamin Tablet 1 tab PO DAILY RF: 0 Shingrix (PF) 50 mcg/0.5 mL suspension for reconstitution 50 mcg IM ONCE Qty: 1 RF: 0 No Action calcium citrate 250 mg calcium Tablet 630 mg PO DAILY RF: 0 Follow up/Referrals: Lindsay Rodarte ARNP [Primary Care Provider] - Carter Urban MD [Physician] - Diet/Activity/Treatments Diet: Regular Activity: May progress weight-bearing activity as tolerated. Daily range of motion of the knee. Other treatments: Use ibuprofen 400 mg and Tylenol 500 mg every 4 hours in addition to the prescribed pain medication. Skin/Wound/Dressing Care Report to your healthcare provider any signs of infection, such as:: chills, fever, increased pain, unusual drainage and unusual redness Visit Report/Discharge Packet Instructions: DI for Knee Replacement, How to Prevent Falls, DI for Postoperative Pain, DI for Prescription Opioid Use, Oxycodone Stand Alone Forms: Patient Portal/API, Surgery Discharge Discharge Data Primary Care Provider: Lindsay Rodarte Quality VTE Deep Vein Thrombosis/Pulmonary Embolism Present on Admission: No
--- NOTE | 2020-07-03 09:15 | PC.NURSE ---
Addendum entered by Nancy De Los Santos R.N. 07/03/20 14:42: Spoke with Dr. Fraire around 1200 who was able to finalize discharge medication list to continue Calcium Citrate home med as per Dr. Urban. Pt states having all her personal belongings upon discharge. Discharge summary packet reviewed with pt. States already has follow up appointment sent. Pt has Miralax already at home. No further voiced concerns regarding discharge paperwork. pt's 2 friends are coming to crop picker pt for discharge. Pt expresses having good friend support for during the day and night. These 2 friends have no further plans for a month per pt and will aid in taking care of pt. Addendum entered by Nancy De Los Santos R.N. 07/03/20 11:42: DESTINEY May called and left message at 1136 to assist in finalizing discharge med list. Addendum entered by Nancy De Los Santos R.N. 07/03/20 11:06: Called Dr. Urban at 1105, No action noted on 1 medication on discharge med list. Unable to finalize med list. Dr. Urban states pt can resume all her home meds. Addendum entered by Nancy De Los Santos R.N. 07/03/20 10:53: Patient states that she already has Miralax at home to prevent constipation. Original Note: Day Shift- Pt A&OX4, able to make her needs known using call light. OOB this AM to BSC for urinary urgency, pt has history of dribbling also. Pt able to move herself in/out of bed with slow movements. Used walker to BSC. Pt states pain to left knee incision area is 2-4/1- with movement and 1/10 with rest most of the time. Left knee incision covered with CDI ANGEL dressing and sukhi wrap. CMS+, pt denies any numbness or tingling. Calf SCD's on BLE. Pt plans for discharge after lunch, her friends will be coming to pick her up.
--- NOTE | 2020-07-03 09:25 | PT.IPTN ---
Current Diagnoses Bilateral primary osteoarthritis of knee (07/02/20) Surgery Performed Operation Date: 07/01/20 13:15 Actual Procedures p Total Knee Arthroplasty(Left) - Carter Urban MD Physical Therapy Treatment Note M2 PT-IP Current Condition Start: 07/02/20 11:29 Freq: NEEDED Status: Active Protocol: Document 07/02/20 09:15 AB (Rec: 07/02/20 11:40 AB [email or web address]) Physical Therapy Current Condition Current Condition Evaluation Date 07/02/20 Treatment Diagnosis s/p L TKA; difficulty in walking Onset Date 07/01/20 Weight Bearing Status Weight Bearing Status Weight Bear as Tolerated Allowed Weight Bearing Amount (enter % LLE WBAT or #) (%) M3 PT-IP Subjective Start: 07/02/20 11:29 Freq: NEEDED Status: Active Protocol: Document 07/03/20 09:25 AB (Rec: 07/03/20 12:46 AB [id number]) Subjective Physical Therapy Visit Type Type Treatment Note Visit Start Time 09:25 Visit Stop Time 09:57 Total Visit Minutes 32 Number of SENIOR ELECTRICAL DESIGN ENGINEER Visits 0 Physical Therapy Visit Comments Patient Comments pt is agreeable to do PT Therapy Pain Assessment Pain When Pain Assessed At Rest Pain Present Pain Present Pain Reported Location Left Knee Intensity 3 Scale Used Numeric (0 - 10) Pain Management Techniques Re-positioning,Timing of Activity with Medications M4 PT-IP Mobility and Gait Start: 07/02/20 11:29 Freq: NEEDED Status: Active Protocol: Document 07/03/20 09:25 AB (Rec: 07/03/20 12:46 AB [email or web address]) PT-Bed Mobility Assessment Supine to Sit Supine to Sit Standby Assistance PT-Transfer Assessment Sit to and From Stand Sit to and from Stand Standby Assistance,1 Person Assistance Equipment Transfer Assistive Device Gait Belt,Front Wheeled Walker Orthotic/Prosthetic Devices or Brace: No Transfers Transfer Destination Toilet Transfer Technique ambulated using FWW Transfer Ability Level of Assist Standby Assistance Comments Mobility Comments completed supine to sit SBA, sit to stand SBA and ambulated to the toilet using FWW SBA. pt was able to complete toileting SBA. completed sit to stand from the toilet SBA and ambulated towards the sink SBA. pt was able to maintain standing SBA while completing handwashing. agreed to ambulate more and completed ~ 60 ft using FWW SBA. pt sat up on chair and assisted with positioning. call light and table placed within reach. Gait Assessment Gait Gait Assistance Required: Standby Assistance Distance (Feet) 60 Able to Maintain Weight Bearing Status Yes During Gait Assistive Devices Assistive Device Gait Belt,Front Wheeled Walker Orthotic/Prosthetic Devices or Brace: No Gait Deviations General Gait Pattern Antalgic,Decreased Stride Length,Decreased Feet Clearance,Step-to Gait Factors Limiting Gait Function Factors Limiting Gait Function Decreased Activity Tolerance, Decreased Strength,Limited Range of Motion,Pain,Poor Balance,Poor Safety Awareness Comments Gait Comments pls refer to mobility section for details M5 PT-IP Objective Assessments Start: 07/02/20 11:29 Freq: NEEDED Status: Active Protocol: Document 07/02/20 09:15 AB (Rec: 07/02/20 11:40 AB [email or web address]) Orientation Orientation/Cognition Level of Alertness Alert Orientation Name,Place,Situation Language Function Ability Hard of Hearing Safety Awareness Understands Safety Issues Memory Description No Deficits Noted Gross Range of Motion Lower Extremity ROM Assessment Left Impaired Impairments L knee flexion: ~ 70 deg Strength Lower Extremity Strength Assessment Left Impaired Hip 4-/5 Knee 3+/5 Coordination Assessment Gross Coordination Gross Coordination WNL Sensation Assessment Sensation Gross Sensation WNL Muscle Tone Muscle Tone WNL Yes M6 PT-IP Treatment Start: 07/02/20 11:29 Freq: NEEDED Status: Active Protocol: Document 07/03/20 09:25 AB (Rec: 07/03/20 12:46 AB [email or web address]) Physical Therapy Treatment Education Education Provided Safety M7 PT-IP Assessment and Plan Start: 07/02/20 11:29 Freq: NEEDED Status: Active Protocol: Document 07/03/20 09:25 AB (Rec: 07/03/20 12:46 AB [email or web address]) PT Summary Assessment and Plan Potential Rehabilitation Potential Good Summary Impairments Pain,ROM,Strength,Balance, Coordination,Sensation,Tone, Cognition,Bed Mobility, Transfers,Gait,Activity Tolerance Progress Towards Goals Progressing Toward Goals Assessment Summary pt is progressing with mobility and plans to go home later today. pt will have her friends assist her at home. Goals Bed Mobility Goal Independent Transfer Goal Independent,Front Wheeled Walker Gait Goal Independent,Front Wheel Walker Gait Distance 150 Days to Meet Goals 3 Frequency of Treatment Frequency Of Treatment Twice a Day Treatment Plan Physical Therapy Treatment Plan Bed Mobility Training,Transfer Training,Gait Training, Therapeutic Exercise,Balance Retraining,Post Op Education, Discharge Planning,Hot or Cold Pack,Neuromuscular Re-ed, Coordination Retraining,Manual Therapy Other Recommendations and Next Treatment ambulation Focus Recommendations To Nursing Amount of Assist Needed 1 Person Assist Discharge Recommendations PT Discharge Recommendations Home with Assistance, Outpatient PT Transportation Needs at Discharge Private Vehicle
[2020-07-03 12:01] VITALS: BP 118/57; PULSE 72; RESP 15; TEMP 36.1; O2SAT 93
[2020-07-03] MEDS: OXYCODONE IR 5 MG TABLET PO (12:17)
== END 2020-07-03 13:25 | disposition home or self-care (01) | DRG 470 ==
LOC: OR 13:04 → AC 13:04
PROVIDERS: Admitting Provider Orthopaedic Surgery; PCP Nurse Practitioner Family; Referring Provider Orthopaedic Surgery; Visit Provider Orthopaedic Surgery
PROC: 0SRD0JZ Replacement of Left Knee Joint with Synthetic Substitute, Open Approach (ICD-10-PCS; CPT 27447; principal; 2020-07-01 13:15)
DX: M17.12 Unilateral primary osteoarthritis, left knee (principal); Z68.41 Body mass index [BMI] 40.0-44.9, adult; E07.9 Disorder of thyroid, unspecified; E66.9 Obesity, unspecified; I10 Essential (primary) hypertension; M10.9 Gout, unspecified; E11.9 Type 2 diabetes mellitus without complications; Z79.84 Long term (current) use of oral hypoglycemic drugs
CPT/HCPCS: 36415; 73560; 82962; 85014; 85018; 97116; 97161; 97530; C1776; C9290; J1100; J1170; J2250; J2405; J2704; J3010; J3410

== ENCOUNTER → 2020-10-02 15:32 | Outpatient (CLI) | payer MEDICARE, OTHER, SELFPAY ==
[2020-07-01 17:55] VITALS: BMI 40.8
--- NOTE | 2020-10-02 15:36 | DI.MG.S_ITS ---
BILATERAL DIGITAL SCREENING MAMMOGRAM 3D/2D WITH CAD: 10/02/2020 CLINICAL: Routine screening. Family history of breast cancer. Comparison is made to exams dated: 09/30/2019 mammogram, 09/28/2018 mammogram, and 09/14/2017 mammogram - [facility]. There are scattered fibroglandular elements in both breasts. Current study was also evaluated with a Computer Aided Detection (CAD) system. There are benign calcifications in both breasts. No significant masses, calcifications, or other findings are seen in either breast. There has been no significant interval change. IMPRESSION: BENIGN There is no mammographic evidence of malignancy. A 1 year screening mammogram is recommended. This exam was interpreted at Station ID: [id number]. NOTE: For mammograms, a report in lay terms will be sent to the patient. Approximately 15% of breast malignancies will not be visualized mammographically. In the management of a palpable breast mass, a negative mammogram must not discourage biopsy of a clinically suspicious lesion. Electronically Signed By: Freeman andrade/joe:10/02/2020 17:11:51 letter sent: Normal Exam ACR BI-RADS Category 2: Benign Finding(s) 3342F
== END ==
PROVIDERS: PCP Nurse Practitioner Family; Referring Provider Nurse Practitioner Family; Visit Provider Nurse Practitioner Family
DX: Z12.31 Encounter for screening mammogram for malignant neoplasm of breast (principal); Z80.3 Family history of malignant neoplasm of breast
CPT/HCPCS: 77063; 77067

== ENCOUNTER → 2021-01-18 09:38 | Outpatient (CLI) | payer MEDICARE, OTHER, SELFPAY ==
[2020-07-01 17:55] VITALS: BMI 40.8
[2021-01-18 10:40] LABS: Hematocrit 41.2 % (36-46); Hemoglobin 14.2 g/dL (12.0-16.0); Mean Corpuscular HGB Conc 34.5 % (30-36); Mean Corpuscular Volume 89.7 fL (80-100); Platelet Count 196 X10^3/uL (150-400); Red Blood Cell Count 4.59 X10^6/uL (4.0-5.2); Red Cell Distribution Width 14.5 % (11.6-14.8); White Blood Cell Count 5.8 X10^3/uL (4.5-11.0)
[2021-01-18 11:09] LABS: Alanine Aminotransferase 26 IU/L (<35); Albumin Globulin Ratio 1.5 (1.0-2.8); Alkaline Phosphatase 117 U/L (38-126); Aspartate Aminotransferase 30 IU/L (14-36); BUN Creatinine Ratio 31.3 (6-22); Bilirubin Total 0.5 mg/dL (0.2-1.3); Blood Urea Nitrogen 25 mg/dL (7-17); Calcium 9.7 mg/dL (8.4-10.2); Carbon Dioxide 26 mmol/L (22-32); Chloride 102 mmol/L (98-107); Cholesterol 144 mg/dL (140-199); Estimated Glomerular Filt Rate > 60.0 mL/min (>60); Globulin 2.6 g/dL (1.7-4.1); Glucose 162 mg/dL (80-110); HDL Cholesterol 56 mg/dL (40-60); HEMOLYSIS < 15 (0-50); LDL Cholesterol Calculated 51 mg/dL (<100); Sodium 137 mmol/L (137-145); Total Protein 6.6 g/dL (6.3-8.2); Triglycerides 187 mg/dL (35-150)
[2021-01-18 11:12] LABS: Hemoglobin A1C% w Est Avg Glu 6.4 % (4.0-6.0)
[2021-01-18 11:35] LABS: Creatinine Urine Random 83.3 mg/dL
== END ==
PROVIDERS: PCP Nurse Practitioner Family; Referring Provider Nurse Practitioner Family; Visit Provider Nurse Practitioner Family
DX: E11.9 Type 2 diabetes mellitus without complications (principal); I10 Essential (primary) hypertension; Z13.6 Encounter for screening for cardiovascular disorders
CPT/HCPCS: 36415; 80053; 80061; 82043; 82570; 83036; 85027

== ENCOUNTER → 2021-01-19 14:52 | Outpatient (CLI) | payer MEDICARE, OTHER, SELFPAY ==
[2020-07-01 17:55] VITALS: BMI 40.8
[2021-01-19 16:22] LABS: Free T4, Direct Thyroxine 1.77 ng/dL (0.78-2.19)
[2021-01-19 17:20] LABS: Vitamin D 25 Hydroxy (D3) 56.8 ng/mL (30.0-100.0)
[2021-01-21 14:36] LABS: Fecal Immunochemical Test Negative (Negative)
== END ==
PROVIDERS: PCP Nurse Practitioner Family; Referring Provider Nurse Practitioner Family; Visit Provider Nurse Practitioner Family
DX: Z12.11 Encounter for screening for malignant neoplasm of colon (principal); E03.9 Hypothyroidism, unspecified; M15.9 Polyosteoarthritis, unspecified; M81.0 Age-related osteoporosis without current pathological fracture
CPT/HCPCS: 36415; 82274; 82306; 84439; 84443

== ENCOUNTER → 2021-02-03 11:49 | Outpatient (CLI) | payer MEDICARE, OTHER, SELFPAY ==
[2020-07-01 17:55] VITALS: BMI 40.8
[2021-02-03 13:15] LABS: COVID19 -Nasal RAPID Negative (Negative)
== END ==
PROVIDERS: PCP Nurse Practitioner Family; Visit Provider Physician Assistant
DX: Z01.812 Encounter for preprocedural laboratory examination (principal); Z20.822 Contact with and (suspected) exposure to COVID-19
CPT/HCPCS: 87635; C9803

== ENCOUNTER 2021-02-06 12:54 | Observation (INO) | payer MEDICARE, OTHER, SELFPAY ==
[2020-07-01 17:55] VITALS: BMI 40.8
[2021-02-05] VITALS (19 sets, daily range): BP systolic 120–141; BP diastolic 54–82; PULSE 63–92; RESP 8–18; TEMP 35.8–36.9; O2SAT 92–97; BMI 30.5
[2021-02-05] MEDS: ACETAMINOPHEN 325 MG TABLET 975 MG PO (09:08)
[2021-02-05] MEDS: PREGABALIN 75 MG CAPSULE PO (09:09)
[2021-02-05] MEDS: CELECOXIB 200 MG CAPSULE PO (09:09)
[2021-02-05] MEDS: LACTATED RINGERS 1,000 ML 100 ML IV ×3 (09:39→15:23)
--- NOTE | 2021-02-05 10:12 | PM.PREOP ---
Pre-operative Note COVID-19 COVID-19 status: Negative Result date/Date tested (Pos, Neg/Pending): 02/03/21 Interval Note History & Physical reviewed/Exam performed by Physician: Yes Changes to H&P: No
--- NOTE | 2021-02-05 10:12 | PM.OP.1 ---
Operative Date/Time/Diagnoses Date of procedure: 02/05/21 Time of procedure: 12:05 Pre-op diagnosis: Right knee osteoarthritis Post-op diagnosis: same Procedure & Clinicians Procedure: Right total knee arthroplasty Same procedure as scheduled: Yes Indications: The patient presents today for total knee arthroplasty after failure of conservative treatment. The nature of the procedure including the risks and benefits, alternatives, postoperative course and expected outcome were discussed and all questions answered. Consent was obtained. Operative site confirmed and marked. Surgeon: Carter Urban Linseed Oil Boiler: Fam Adame Anesthesia Type: General and Local Operative Notes Closure Type: primary Specimen(s): none sent Prosthetic devices, grafts, tissues, transplants, or devices: Fox and Nephclem Christopher BCS: [xx] femoral component, [xx] tibial component, [xx] mm BCS polyethylene tray and [xx] mm round patella Applied: implant(s) Estimated Blood Loss (mL): 10 Blood products transfused: none Tourniquet time (min): 60 Procedure in detail: The patient was taken to the operative suite and placed under anesthesia. The patient was given prophylactic antibiotics prior to surgery. The patient was also given tranexamic acid, 1 g, just prior to surgery for postoperative hemostasis. The lateral knee was prepped and the joint injected with 20 mL of 1% Lidocaine with epinephrine. The knee was then prepped and draped in usual sterile fashion. The leg was exsanguinated with an Esmarch dressing and the tourniquet raised to 250 torr. A 15 cm anterior incision was made. Next a medial trivector arthrotomy was made. The extensor mechanism was marked to ensure accurate repair. Initial exposing dissection was carried out medially and laterally. The knee was then flexed and the intramedullary femoral guide justin placed. The distal femoral cut was made in 6? of valgus at the +1 position. The femoral size was measured and the appropriate cutting block was then placed and the anterior, posterior and chamfer cuts made. The intramedullary tibial alignment justin was then placed. The guide was set to remove approximately 10 mm from the less affected lateral side. The proximal tibial cut was then made with an oscillating saw. All meniscus and bony debris was then removed. Posterior femoral osteophytes removed with a curved osteotome. Flexion extension gaps were checked. No specific balancing was required other than routine exposure and removal of osteophytes. The soft tissues were then injected with a combination of 20 mL of half percent Marcaine with epinephrine and 20 mL of Exparel. The trial components were then placed. The knee was then extended and the patellar thickness was measured and a cut made removing approximately 9 mm of bone. The patella was then sized and drilled. Some excess lateral bone was excised and the patellofemoral ligament released. The knee went into full extension and flexion beyond 130?. There was excellent medial-lateral balance throughout motion. Patellar tracking was excellent. The trial components were removed and the knee was cleansed with Pulsavac irrigation and dried. The final components were cemented with high viscosity vacuum mixed bone cement with antibiotics. The joint was filled with a dilute Betadine solution. The knee was held in extension and the patellar clamped until the cement was adequately cured. The knee was then irrigated. The extensor mechanism was closed with 5 interrupted #1 Vicryl sutures and a running Quill suture at approximately 90 degrees of flexion. The joint was then injected with a combination of 1 g of tranexamic acid and 20 mL of quarter percent Marcaine with epinephrine. The subcutaneous tissue was closed with 2 0 Vicryl. The skin was closed with absorbable subcuticular sutures and surgical adhesive. An Aquacel dressing and Jaxon wrap were then applied. The patient tolerated the procedure well and was returned to recovery room in good condition. Complications: none Post-operative Condition: stable Disposition: PACU Plan for aftercare: [facility] Protocol.
[2021-02-05] MEDS: CEFAZOLIN 2 GM/100 ML FROZ.PIGGY IV ×2 (10:33→17:24)
[2021-02-05] MEDS: TRANEXAMIC ACID 1,000 MG VIAL 1000 MG INJ ×2 (10:39→11:10)
[2021-02-05] MEDS: BUPIVACAINE 0.25% W/ EPI (PF) 40 ML, BUPIVACAINE LIPOSOME 266 MG, SODIUM CHLORIDE 0.9% ... INJ (11:07)
[2021-02-05] MEDS: LIDOCAINE 1% W/EPI 20 ML INJ (11:09)
[2021-02-05] MEDS: ONDANSETRON 4 MG/2 ML INJ IV (13:08)
[2021-02-05] MEDS: OXYCODONE IR 5 MG TABLET PO ×2 (13:08→16:24)
--- NOTE | 2021-02-05 13:39 | DI.RAD.S_ITS ---
PROCEDURE: XR KNEE RT 1TO2V INDICATIONS: post op total knee TECHNIQUE: To view(s) of the knee acquired. COMPARISON: [facility], CR, XR KNEE ARTHRITIC SERIES LT, 08/10/2020, 13:02. [facility], CR, XR KNEE LT 1TO2V, 07/01/2020, 16:59. FINDINGS: Bones: Patient is status post knee joint arthroplasty. Hardware components are in expected positions. Visualized bony structures are intact. Soft tissues: Overlying postoperative changes are noted. IMPRESSION: Normal alignment established after right total knee arthroplasty. Dictated by: Fam Stevens M.D. on 02/05/2021 at 14:01 Approved by: Fam Stevens M.D. on 02/05/2021 at 14:22
--- NOTE | 2021-02-05 14:53 | PC.NURSE ---
Patient admitted to room 220, she had a r.total knee done. She is alert and oriented x3. Patient is diabetic and bs 157- at 1255. She had minimal blood loss in the OR, patient has feeling to her whole leg. Given oral oxycodone before she came up. IVF and patient is tolerating this well. She has had some problem with nausea from previous surgery, she was given zofran prior to oxy. Patients personal belongings and walker brought up from cane cutter.
[2021-02-05] MEDS: ACETAMINOPHEN 325 MG TABLET 650 MG PO ×2 (15:15→20:43)
[2021-02-05] MEDS: IBUPROFEN 400 MG TABLET PO ×2 (15:16→20:43)
--- NOTE | 2021-02-05 15:20 | PT.IIE ---
Current Diagnoses Unilateral primary osteoarthritis, right knee (02/05/21) Surgery Performed Operation Date: 02/05/21 10:00 Actual Procedures p Total Knee Arthroplasty(Right) - Carter Urban MD Surgical History (Last Updated 02/01/21 @ 15:01 by Marbella Ly, RN) History of repair of pyloric stenosis (1943) History of total knee arthroplasty (~2019) Hx of arthroscopy of left knee (2010) Hx of arthroscopy of right knee Hx of bilateral cataract extraction (2016) Status post cataract extraction of both eyes with insertion of intraocular lens Status post cholecystectomy Medical History (Last Updated 02/01/21 @ 13:46 by Marbella Ly, RN) Arthritis of right knee Cerumen impaction Diabetes (Unknown) Diabetic retinopathy associated with controlled type 2 diabetes mellitus Gout Hearing impaired Hypertension (Unknown) Hypothyroidism (1984) Osteoarthritis (Unknown) Osteopenia (2017) Osteoporosis (09/2019) Pre-procedural examination Screening for heart disease Screening for malignant neoplasm of colon Sinus drainage Urinary incontinence Physical Therapy Inpatient Evaluation/Re-Eval M1 PT/OT-IP Prior Functional Status Start: 02/05/21 16:27 Freq: NEEDED Status: Active Protocol: Document 02/05/21 15:20 AB (Rec: 02/05/21 16:50 AB [id number]) Medical Review Prior Functional Status Medical History Reviewed Yes Communication able to make needs known Mobility and Gait pt stated that she is modified independent with all mobilities and ambulation without AD indoors but uses a FWW for long distance ambulation or when she has to stand for a long period of time Social History Household Members none Living Arrangements House Number of Floors (Floors) One Floor Number of Stairs To Enter/Railing? ramp to enter Home Environment High Toilet,Tub/Shower Home Equipment Front Wheel Walker,Straight Cane,Raised Toilet Seat w/ Armrests,Shower Seat without Backrest,Grab Bars Near Toilet ,Grab Bars In Shower Additional Social History Comment stated that her friend will stay and assist her as long as she needs help pt stated that she plans to sleep on her recliner initially when she goes home until she feels comfortable to use the bed M2 PT-IP Current Condition Start: 02/05/21 16:27 Freq: NEEDED Status: Active Protocol: Document 02/05/21 15:20 AB (Rec: 02/05/21 16:50 AB [email or web address]) Physical Therapy Current Condition Current Condition Evaluation Date 02/05/21 Treatment Diagnosis s/p R TKA; difficulty in walking Onset Date 02/05/21 Weight Bearing Status Weight Bearing Status Weight Bear as Tolerated Allowed Weight Bearing Amount (enter % RLE WBAT or #) (%) M3 PT-IP Subjective Start: 02/05/21 16:27 Freq: NEEDED Status: Active Protocol: Document 02/05/21 15:20 AB (Rec: 02/05/21 16:50 AB [id number]) Subjective Physical Therapy Visit Type Type Initial Evaluation Visit Start Time 15:20 Visit Stop Time 16:05 Total Visit Minutes 45 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 0 Physical Therapy Visit Comments Patient Comments requested to use the toilet Therapy Pain Assessment Pain When Pain Assessed During Mobility Pain Present Pain Present Pain Reported Location right hand Intensity 4 Scale Used 3/10 at rest Pain Management Techniques Apply Cold,Distraction, Modification of Treatment,Re- positioning,Timing of Activity with Medications M4 PT-IP Mobility and Gait Start: 02/05/21 16:27 Freq: NEEDED Status: Active Protocol: Document 02/05/21 15:20 AB (Rec: 02/05/21 16:50 AB [email or web address]) PT-Bed Mobility Assessment Rolling Level of Assist 1 Person Assistance Supine to Sit Supine to Sit Maximum Assistance,1 Person Assistance Sit to Supine Sit to Supine Moderate Assistance,1 Person Assistance PT-Transfer Assessment Sit to and From Stand Sit to and from Stand Moderate Assistance,1 Person Assistance,Use of Upper Extremities Equipment Transfer Assistive Device Gait Belt,Front Wheeled Walker Orthotic/Prosthetic Devices or Brace: No Transfers Transfer Destination Bedside Commode Transfer Technique Stand Step Pivot Transfer Ability Level of Assist Moderate Assistance,1 Person Assistance,Use of Upper Extremities Comments Mobility Comments completed supine to sit max A and cues. pt was able to sit on EOB SBA. pt stated that BLE is still slightly numb. completed sit to stand mod A and cues and was able to complete step transfer using FWW mod A and cues. completed sit to stand from bedside commode mod A and NAC assisted with hygiene care. completed step transfer to bed using FWW mod A and cues. pt requested to go back to bed and completed sit to supine mod A with LE. positioned in bed. call light and table placed within reach. Gait Assessment Comments Gait Comments able to take steps during transfers PT-Balance Assessment Sitting Balance and Reactions Static Sitting Balance Ability Good Dynamic Sitting Balance Ability Good Standing Balance and Reactions Static Standing Balance Ability Fair Dynamic Standing Balance Ability Poor Device Used FWW M5 PT-IP Objective Assessments Start: 02/05/21 16:27 Freq: NEEDED Status: Active Protocol: Document 02/05/21 15:20 AB (Rec: 02/05/21 16:50 AB [email or web address]) Orientation Orientation/Cognition Level of Alertness Alert Orientation Name,Place,Situation Safety Awareness Decreased Safety Awareness Gross Range of Motion Lower Extremity ROM Assessment Within Functional Limits Impairments R knee flexion: ~ 60 deg Strength Lower Extremity Strength Assessment Right Impaired Hip 3+/5 Knee 3+/5 Coordination Assessment Gross Coordination Gross Coordination WNL Sensation Assessment Sensation Gross Sensation Right LE Impaired,Left LE Impaired Sensation Description Numbness Comments Sensation Comments slight numbness on BLE Muscle Tone Muscle Tone WNL Yes M6 PT-IP Treatment Start: 02/05/21 16:27 Freq: NEEDED Status: Active Protocol: Document 02/05/21 15:20 AB (Rec: 02/05/21 16:50 AB [email or web address]) Physical Therapy Treatment Exercises Exercises Heel Slides Education Education Provided Precautions,Weight Bearing Status,Post-Op Packet,Safety M7 PT-IP Assessment and Plan Start: 02/05/21 16:27 Freq: NEEDED Status: Active Protocol: Document 02/05/21 15:20 AB (Rec: 02/05/21 16:50 AB [email or web address]) PT Summary Assessment and Plan Potential Rehabilitation Potential Good Status of Condition at Evaluation Evolving Summary Impairments Pain,ROM,Strength,Balance, Coordination,Sensation,Tone, Cognition,Bed Mobility, Transfers,Gait,Activity Tolerance Assessment Summary pt s/p R TKA and just had surgery this morning. still c /o slight numbness on BLE but able to transfer using FWW mod A. pt plans to go home and her friend will stay and assist her as needed. will continue to assess progress. pt stated that she is set up for outpt PT. Goals Bed Mobility Goal Independent Transfer Goal Independent,Front Wheeled Walker Gait Goal Independent,Front Wheel Walker Gait Distance 150 Days to Meet Goals 5 Frequency of Treatment Frequency Of Treatment Twice a Day Treatment Plan Physical Therapy Treatment Plan Bed Mobility Training,Transfer Training,Gait Training, Therapeutic Exercise,Balance Retraining,Post Op Education, Discharge Planning,Hot or Cold Pack,Neuromuscular Re-ed, Coordination Retraining,Manual Therapy Precautions Other Precautions WBAT RLE Recommendations To Nursing Amount of Assist Needed 1 Person Assist Discharge Recommendations PT Discharge Recommendations Home with Assistance, Outpatient PT Transportation Needs at Discharge Private Vehicle
--- NOTE | 2021-02-05 16:49 | PC.NURSE ---
Addendum entered by Natali Fortune R.N. 02/05/21 21:46: Pt remains awake, alert in bed. Denies pain to right hand or right knee. Ice in place over jaxon wrap to right knee. No change in neurovascular status this evening shift. Encouraged to call for needs and narcotics were offered to manage pain as needed. Original Note: Pt awake, alert resting quietly in bed. Has completed P.T. 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 Pt rates right knee pain 4/10 with movement and denies @ rest. Reports full sensation to right LE. Palpable pedal pulse to right foot. Warm and pink right LE. Ice to right knee. Jaxon wrap is dry and intact. Pt denies nausea. Oxycodone given with applesauce. Instructed pt not to attempt out of bed without calling for staff assistance and pt acknowledges understanding and agreement.
[2021-02-05] MEDS: METFORMIN XR 500 MG TABLET PO (17:55)
[2021-02-05] MEDS: ASPIRIN EC 81 MG TABLET PO (20:43)
[2021-02-06] VITALS (9 sets, daily range): BP systolic 117–148; BP diastolic 51–84; PULSE 68–84; RESP 16–18; TEMP 36.1–37.4; O2SAT 90–98
[2021-02-06] MEDS: OXYCODONE IR 5 MG TABLET PO ×3 (00:07→20:18)
[2021-02-06] MEDS: IBUPROFEN 400 MG TABLET PO ×6 (00:37→20:47)
[2021-02-06] MEDS: CEFAZOLIN 2 GM/100 ML FROZ.PIGGY IV (00:38)
[2021-02-06] MEDS: LACTATED RINGERS 1,000 ML 100 ML IV (02:45)
[2021-02-06] MEDS: LEVOTHYROXINE 100 MCG TABLET PO (06:15)
[2021-02-06 06:24] LABS: Hematocrit 35.5 % (36-46); Hemoglobin 12.1 g/dL (12.0-16.0)
[2021-02-06] MEDS: DOCUSATE 100 MG CAPSULE PO ×2 (08:20→20:46)
[2021-02-06] MEDS: ASPIRIN EC 81 MG TABLET PO ×2 (08:20→20:46)
--- NOTE | 2021-02-06 08:20 | PM.PNPO.1 ---
Subjective Subjective Date Patient Seen: 02/06/21 Time Patient Seen: 08:20 Interval history: 75-year-old female postop day 1 status post right total knee arthroplasty for right knee osteoarthritis. Patient states that she is doing well, but in slight discomfort. She denies fever, chills, nausea, shortness of breath, chest pain, or urinary retention at this time. She reports good sensation throughout the bilateral lower extremities. She reports that she has worked with physical therapy but still has reservations about being discharged home as she does not have adequate care to aid her in her recovery. Exam Vital Signs (past 8 hours): - 02/06/21 05:02 02/06/21 07:52 Temperature 97.0 F L Pulse Rate 73 73 Respiratory Rate 16 16 Blood Pressure 148/68 H Pulse Oximetry 92 94 Oxygen Delivery Method Room Air Oxygen Flow Rate 0 Narrative Exam Narrative: Patient is resting comfortably in bed, is in no acute distress, is alert and oriented x3. Skin is warm and dry, and the skin surrounding the incision site is free of warmth, erythema, induration, or discharge. Dressing over the incision is clean and dry. Palpable pulses appreciated along the bilateral lower extremities. Patient has good sensation throughout the bilateral lower extremities. Hip flexion is performed well without difficulty or discomfort on the left lower extremity. Hip flexion of the right lower extremity limited due to pain. Dorsiflexion, plantar flexion, eversion, inversion of the ankles bilaterally performed well without discomfort or difficulty. Negative Homans sign, no other signs of DVT appreciated. Const General: cooperative, healthy appearing and comfortable Resp Effort & Inspection: normal respiratory effort and able to speak in complete sentences Skin General: no rashes or lesions noted Objective Labs Result Diagrams: 02/06/21 05:55 Labs: Laboratory Results - last 24 hr 02/06/21 05:55 Hgb 12.1 Hct 35.5 L PFSH Medical History Arthritis of right knee Cerumen impaction Diabetes (Unknown) Diabetic retinopathy associated with controlled type 2 diabetes mellitus Gout Hearing impaired Hypertension (Unknown) Hypothyroidism (1984) Osteoarthritis (Unknown) Osteopenia (2017) Osteoporosis (09/2019) Pre-procedural examination Screening for heart disease Screening for malignant neoplasm of colon Sinus drainage Urinary incontinence Surgical History History of repair of pyloric stenosis (1943) History of total knee arthroplasty (~2019) Hx of arthroscopy of left knee (2009) Hx of arthroscopy of right knee Hx of bilateral cataract extraction (2016) Status post cataract extraction of both eyes with insertion of intraocular lens Status post cholecystectomy Family History Father Heart disease Mother Diabetes mellitus Social History household members: none Smoking Status: Never smoker second hand exposure: Yes (I grew up with my Dad smoking cigarettes and pipes. ) alcohol intake: never substance use type: does not use Assessment & Plan Post-op Postoperative Procedures: Procedures Operation Date: 02/05/21 10:00 Actual Procedures Side Surgeon p Total Knee Arthroplasty Right Carter Urban MD Postoperative day: 1 Postoperative status: doing well Postoperative plan: ambulate Postoperative plan narrative: Patient is to continue working with PT, focusing on ambulating. Patient is to continue taking aspirin 81 mg b.i.d. for 6 weeks for DVT prophylaxis. Pain management regimen is to be continued as it is adequately controlling the patient's pain. The patient is to follow up in clinic 2 weeks following discharge from the hospital. Patient is also to continue physical therapy following discharge. Time Spent With Patient Time with patient: 15-24 minutes Quality VTE Deep Vein Thrombosis/Pulmonary Embolism Present on Admission: No
[2021-02-06] MEDS: ACETAMINOPHEN 325 MG TABLET 650 MG PO ×3 (08:21→20:46)
[2021-02-06] MEDS: SODIUM CHLORIDE 0.9% FLUSH 10 ML IV ×2 (08:22→20:47)
[2021-02-06] MEDS: AMLODIPINE 5 MG TABLET 10 MG PO (08:24)
[2021-02-06] MEDS: lisinopriL 10 MG TABLET PO (08:24)
[2021-02-06] MEDS: allopurinoL 300 MG TABLET PO (08:35)
--- NOTE | 2021-02-06 09:14 | PM.DS.1 ---
History of Present Illness History of Present Illness Date Patient Seen: 02/06/21 Time Patient Seen: 09:14 Chief complaint: *OPB* Narrative: Refer to previous HPI Discharge Providers Provider Discharge Date: 02/06/21 Primary care physician: MARLY Dunaway Consults: 02/05/21 14:00 Consult to Discharge Planning Routine Comment: Consult to Physical Therapy Evaluate & Treat Comment: Physician Instructions: postop TKA protocol Consult to Respiratory Therapy Evaluate & Treat Comment: Physician Instructions: Evaluate and treat 02/05/21 16:18 Consult to Dietitian, Adult Routine Comment: Reason For Exam: intentional weight loss Consult to Pastoral Services Routine Comment: visit is okay with pt. Pt is [employer]. Discharge provider: Perez Mclean PA-C Summary Hospital Course Discharge Diagnosis: Right knee osteoarthritis Status post right total knee arthroplasty Hospital Course: Patient was admitted to the hospital following the above-listed procedure for the above-listed diagnosis. Following the procedure the patient has been convalescing appropriately. Patient has been working on ambulating with physical therapy. Following the procedure the patient's pain has been well controlled with current pain control regimen. The patient is to follow-up at the clinic in 2 weeks following discharge, and she is to continue with outpatient physical therapy. The dressing over the incision has remained intact. All questions and concerns have been addressed at this time and the patient has been instructed to return to the clinic with any further questions or concerns. Status at Discharge Cognitive/behavioral status at discharge: oriented Functional status at discharge: uses cane/walker Overall status at discharge: patient is progressing back to baseline Time Spent with Patient Time spent: Less than 30 minutes Exam Vital Signs (past 8 hours): - 02/06/21 05:02 02/06/21 07:52 02/06/21 08:24 Temperature 97.0 F L Pulse Rate 73 73 Respiratory Rate 16 16 Blood Pressure 148/68 H 146/84 H Pulse Oximetry 92 94 Oxygen Delivery Method Room Air Oxygen Flow Rate 0 Narrative Exam Narrative: Patient is resting comfortably in bed, is in no acute distress, is alert and oriented x3. Sensation intact throughout the bilateral lower extremities. The skin is warm and dry, and the skin surrounding the incision site is free of erythema, warmth, induration, or discharge. Patient is able to perform left hip flexion without difficulty or discomfort. Right hip flexion limited due to pain. Dorsiflexion, plantar flexion, eversion, inversion performed bilaterally at the ankle without difficulty or discomfort. Negative Homans sign, or any other signs of DVT appreciated. Capillary refill less than 2 seconds. Const General: cooperative, healthy appearing and comfortable Resp Effort & Inspection: normal respiratory effort and able to speak in complete sentences Skin General: no rashes or lesions noted Objective Labs Result Diagrams: 02/06/21 05:55 Labs: Laboratory Results - last 24 hr 02/06/21 05:55 Hgb 12.1 Hct 35.5 L PFSH Medical History Arthritis of right knee Cerumen impaction Diabetes (Unknown) Diabetic retinopathy associated with controlled type 2 diabetes mellitus Gout Hearing impaired Hypertension (Unknown) Hypothyroidism (1984) Osteoarthritis (Unknown) Osteopenia (2017) Osteoporosis (09/2019) Pre-procedural examination Screening for heart disease Screening for malignant neoplasm of colon Sinus drainage Urinary incontinence Surgical History History of repair of pyloric stenosis (1943) History of total knee arthroplasty (~2019) Hx of arthroscopy of left knee (2009) Hx of arthroscopy of right knee Hx of bilateral cataract extraction (2016) Status post cataract extraction of both eyes with insertion of intraocular lens Status post cholecystectomy Family History Father Heart disease Mother Diabetes mellitus Social History household members: none Smoking Status: Never smoker second hand exposure: Yes (I grew up with my Dad smoking cigarettes and pipes. ) alcohol intake: never substance use type: does not use Discharge Assessment & Plan Assessment and Plan Assessment: Patient is doing well. Plan of Treatment: Patient is to continue working with physical therapy prior to discharge, and will continue outpatient physical therapy following discharge from the hospital. The patient is to follow up in clinic 2 weeks following discharge. The patient is clear for home discharge from the hospital pending PT clearance. Discharge Plan Discharge Plan Patient Disposition: Home Provider Discharge Comment: Patient to continue PT following discharge Discharge orders & Medications Discharge Orders: Discharge (Order); Ordered 02/06/21 Ordered By: Perez Mclean Prescriptions: New acetaminophen 325 mg Tablet 650 mg PO TID Qty: 90 RF: 0 aspirin 81 mg Tablet,Delayed Release (Dr/Ec) 81 mg PO BID Qty: 90 RF: 0 ibuprofen 400 mg Tablet 400 mg PO Q4HR Qty: 90 RF: 0 oxycodone 10 mg Tablet 10 mg PO Q3HR PRN (Reason: Pain, Severe (7-10)) Qty: 30 RF: 0 Continued aspirin [Adult Low Dose Aspirin] 81 mg tablet,delayed release (DR/EC) 81 mg PO DAILY RF: 0 cholecalciferol (vitamin D3) 2,000 unit capsule 2,000 unit PO DAILY RF: 0 (DME) One Touch Ultra Mini Tst Strips Qty: 100 RF: 3 (DME) Disabled Parking Placard Qty: 1 RF: 0 clotrimazole-betamethasone 1-0.05 % cream 1 applictn TOP ONCE PRN (Reason: itching) Qty: 45 RF: 1 multivitamin Tablet 1 tab PO DAILY RF: 0 diclofenac sodium 1 % gel 2 g topical QID Qty: 100 RF: 0 allopurinol 300 mg tablet 300 mg PO QDAY Qty: 90 RF: 1 amlodipine 10 mg tablet 10 mg PO DAILY Qty: 90 RF: 1 hydrochlorothiazide 25 mg tablet 25 mg PO DAILY Qty: 90 RF: 1 levothyroxine 100 mcg tablet 100 mcg PO DAILY Qty: 90 RF: 1 lisinopril 10 mg tablet 10 mg PO Q DAY Qty: 90 RF: 1 metformin 500 mg tablet extended release 24 hr 500 mg PO QPM Qty: 90 RF: 1 calcium citrate 250 mg calcium Tablet 1,260 mg PO DAILY RF: 0 acetaminophen [Acetaminophen Extra Strength] 500 mg Tablet 500 - 1,000 mg PO Q6H PRN (Reason: Pain) RF: 0 Follow up/Referrals: Lindsay Rodarte ARNP [Primary Care Provider] - Diet/Activity/Treatments Diet: Diet as Tolerated Activity: Weight bearing as tolerated with assistance of walker Skin/Wound/Dressing Care Report to your healthcare provider any signs of infection, such as:: chills, fever, night sweats, increased pain, unusual drainage and unusual redness Dressing: Should remain dry and intact until first follow-up appointment in clinic Visit Report/Discharge Packet Instructions: DI for Knee Replacement Stand Alone Forms: Surgery Discharge Discharge Data Primary Care Provider: Lindsay Rodarte Attending Provider: Carter Urban VTE Deep Vein Thrombosis/Pulmonary Embolism Present on Admission: No
--- NOTE | 2021-02-06 10:28 | PT.IPTN ---
Current Diagnoses Unilateral primary osteoarthritis, right knee (02/05/21) Surgery Performed Operation Date: 02/05/21 10:00 Actual Procedures p Total Knee Arthroplasty(Right) - Carter Urban MD Physical Therapy Treatment Note M2 PT-IP Current Condition Start: 02/05/21 16:27 Freq: NEEDED Status: Active Protocol: Document 02/05/21 15:20 AB (Rec: 02/05/21 16:50 AB [email or web address]) Physical Therapy Current Condition Current Condition Evaluation Date 02/05/21 Treatment Diagnosis s/p R TKA; difficulty in walking Onset Date 02/05/21 Weight Bearing Status Weight Bearing Status Weight Bear as Tolerated Allowed Weight Bearing Amount (enter % RLE WBAT or #) (%) M3 PT-IP Subjective Start: 02/05/21 16:27 Freq: NEEDED Status: Active Protocol: Document 02/06/21 09:52 CLB (Rec: 02/06/21 11:46 CLB [id number]) Subjective Physical Therapy Visit Type Type Treatment Note Visit Start Time 09:52 Visit Stop Time 10:28 Total Visit Minutes 36 Number of CITY WELLNESS COORDINATOR Visits 1 Physical Therapy Visit Comments Patient Comments Pt willing to work with therapy. Therapy Pain Assessment Pain When Pain Assessed During Mobility Pain Present Pain Present Pain Reported Location Right Knee Intensity 5 Scale Used 7/10 in WB Pain Management Techniques Modification of Treatment,Re- positioning,Timing of Activity with Medications M4 PT-IP Mobility and Gait Start: 02/05/21 16:27 Freq: NEEDED Status: Active Protocol: Document 02/06/21 09:52 CLB (Rec: 02/06/21 11:46 CLB [id number]) PT-Bed Mobility Assessment Supine to Sit Supine to Sit Moderate Assistance,1 Person Assistance,Head of Bed Elevated Scooting Scooting to Edge of Bed Standby Assistance PT-Transfer Assessment Sit to and From Stand Sit to and from Stand Minimal Assistance,1 Person Assistance,Use of Upper Extremities Equipment Transfer Assistive Device Gait Belt,Front Wheeled Walker Orthotic/Prosthetic Devices or Brace: No Transfers Transfer Destination Bedside Commode Transfer Technique Stand Step Pivot Transfer Ability Level of Assist Minimal Assistance,1 Person Assistance,Use of Upper Extremities Comments Mobility Comments Pt in bed performed ther ex then able to use GB to move RLE off bed then required Mod A to sit up then SBA to scoot to EOB. Pt performed stand step pivot to chair with pain 7/10 in WBing. Pt then transferred Min A to chair. Pt wanting to get stronger pain med before continuing therapy. Left pt in chair with all needs within reach, informed RN of pt needs. Gait Assessment Comments Gait Comments able to take steps during transfers M5 PT-IP Objective Assessments Start: 02/05/21 16:27 Freq: NEEDED Status: Active Protocol: Document 02/05/21 15:20 AB (Rec: 02/05/21 16:50 AB [email or web address]) Orientation Orientation/Cognition Level of Alertness Alert Orientation Name,Place,Situation Safety Awareness Decreased Safety Awareness Gross Range of Motion Lower Extremity ROM Assessment Within Functional Limits Impairments R knee flexion: ~ 60 deg Strength Lower Extremity Strength Assessment Right Impaired Hip 3+/5 Knee 3+/5 Coordination Assessment Gross Coordination Gross Coordination WNL Sensation Assessment Sensation Gross Sensation Right LE Impaired,Left LE Impaired Sensation Description Numbness Comments Sensation Comments slight numbness on BLE Muscle Tone Muscle Tone WNL Yes M6 PT-IP Treatment Start: 02/05/21 16:27 Freq: NEEDED Status: Active Protocol: Document 02/06/21 09:52 CLB (Rec: 02/06/21 11:46 CLB [id number]) Physical Therapy Treatment Exercises Exercises Ankle Pumps,Quad Sets,Heel Slides,Seated Knee Flexion/ Extension Education Education Provided Precautions,Weight Bearing Status,Safety M7 PT-IP Assessment and Plan Start: 02/05/21 16:27 Freq: NEEDED Status: Active Protocol: Document 02/06/21 09:52 CLB (Rec: 02/06/21 11:46 CLB [id number]) PT Summary Assessment and Plan Potential Rehabilitation Potential Good Status of Condition at Evaluation Evolving Summary Impairments Pain,ROM,Strength,Balance, Coordination,Sensation,Tone, Cognition,Bed Mobility, Transfers,Gait,Activity Tolerance Assessment Summary Pt with increased pain continues to have difficulty ambulating and was only able to transfer to BSC then to chair. Pt states she will request stronger pain meds and is hopeful to do more with therapy later today. Pt has friends that will stay with her but they are unable to physically assist pt, pt will need to bed able to care for herself at d/c. Goals Bed Mobility Goal Independent Transfer Goal Independent,Front Wheeled Walker Gait Goal Independent,Front Wheel Walker Gait Distance 150 Days to Meet Goals 5 Frequency of Treatment Frequency Of Treatment Twice a Day Treatment Plan Physical Therapy Treatment Plan Bed Mobility Training,Transfer Training,Gait Training, Therapeutic Exercise,Balance Retraining,Post Op Education, Discharge Planning,Hot or Cold Pack,Neuromuscular Re-ed, Coordination Retraining,Manual Therapy Other Recommendations and Next Treatment bed mobility, ther ex, Focus transfers and gait Precautions Other Precautions WBAT RLE Recommendations To Nursing Amount of Assist Needed 1 Person Assist Discharge Recommendations PT Discharge Recommendations Home with Assistance, Outpatient PT Transportation Needs at Discharge Private Vehicle
--- NOTE | 2021-02-06 11:43 | CM.DANOTE ---
DCP: Case received, EMR reviewed and met with patient. Introduced self and role. Was able to obtain information from patient regarding her baseline activity status prior to her surgery, as well as her current living situation. DCP assessment completed with information currently available. Patient is a 75 year old female who admitted yesterday morning to the care of the orthopedic team. PCP: MARLY Mcqueen. Payer: confirmed: Medicare/[facility]. Patient came to the hospital via private vehicle for a surgical procedure. She had right total knee arthroplasty. Patient has history of osteoarthritis to her right knee. She had her surgery yesterday. Met with patient in her room. She is alert and oriented, pleasant. She resides alone here in [place]. She mentioned that she plans to have a friend from [place] stay with her when she goes home. She mentioned, she has been having severe pain post surgery. She worked with P.T. yesterday, and will work with them today. She has a ramp to her door at home, and a walker for home use if needed. Prior to surgery, patient has been independent. She also has outpatient P.T. set up here in [place]. P: Patient has discharge orders today. Will depend upon pain level and how she does with therapy team. Nisha Merchant RN/Assistant Purchasing Manager
--- NOTE | 2021-02-06 12:23 | PT.IPTN ---
Current Diagnoses Unilateral primary osteoarthritis, right knee (02/05/21) Surgery Performed Operation Date: 02/05/21 10:00 Actual Procedures p Total Knee Arthroplasty(Right) - Carter Urban MD Physical Therapy Treatment Note M2 PT-IP Current Condition Start: 02/05/21 16:27 Freq: NEEDED Status: Active Protocol: Document 02/05/21 15:20 AB (Rec: 02/05/21 16:50 AB [id number]) Physical Therapy Current Condition Current Condition Evaluation Date 02/05/21 Treatment Diagnosis s/p R TKA; difficulty in walking Onset Date 02/05/21 Weight Bearing Status Weight Bearing Status Weight Bear as Tolerated Allowed Weight Bearing Amount (enter % RLE WBAT or #) (%) M3 PT-IP Subjective Start: 02/05/21 16:27 Freq: NEEDED Status: Active Protocol: Document 02/06/21 12:23 CLB (Rec: 02/06/21 13:52 CLB [id number]) Subjective Physical Therapy Visit Type Type Treatment Note Visit Start Time 11:56 Visit Stop Time 12:23 Total Visit Minutes 27 Number of MULTIMEDIA COORDINATOR Visits 2 Physical Therapy Visit Comments Patient Comments Pt willing to work with therapy. Therapy Pain Assessment Pain When Pain Assessed During Mobility Pain Present Pain Present Pain Reported Location Right Knee Intensity 5 Scale Used Numeric (0 - 10) Pain Management Techniques Modification of Treatment,Re- positioning,Timing of Activity with Medications M4 PT-IP Mobility and Gait Start: 02/05/21 16:27 Freq: NEEDED Status: Active Protocol: Document 02/06/21 12:23 CLB (Rec: 02/06/21 13:52 CLB [id number]) PT-Transfer Assessment Sit to and From Stand Sit to and from Stand Moderate Assistance,1 Person Assistance,Use of Upper Extremities Equipment Transfer Assistive Device Gait Belt,Front Wheeled Walker Orthotic/Prosthetic Devices or Brace: No Transfers Transfer Destination Chair,Toilet Transfer Technique Stand Step Pivot Transfer Ability Level of Assist Contact Guard Assistance,1 Person Assistance,Use of Upper Extremities Comments Mobility Comments Pt in chair requiring Mod A and cues for quad activation. Pt then ambulated ~10ft to BR w/FWW/CGA. Pt sat on toilet Min A and Mod A with use of hand rails to stand. Pt ambulated in room ~30ft w/FWW/ CGA. Pt sat in chair with cues for leg placement to decrease pain needing Min A. Pt performed ther ex in chair. Left pt in chair with all needs within reach. Gait Assessment Gait Gait Assistance Required: Contact Guard Assist,1 Person Assist Distance (Feet) 30 Able to Maintain Weight Bearing Status Yes During Gait Assistive Devices Assistive Device Gait Belt,Front Wheeled Walker Orthotic/Prosthetic Devices or Brace: No Gait Deviations General Gait Pattern Antalgic,Decreased Stride Length,Decreased Feet Clearance,Step-to Gait Factors Limiting Gait Function Factors Limiting Gait Function Decreased Activity Tolerance, Decreased Sensation,Decreased Strength,Limited Range of Motion,Pain,Poor Balance,Poor Safety Awareness Comments Gait Comments Pt c/o increased pain with ambulation and was able to ambulate ~30ft w/FWW/CGA. Stair Climbing Assessment Comments Stair Climbing Comments ramp to enter M5 PT-IP Objective Assessments Start: 02/05/21 16:27 Freq: NEEDED Status: Active Protocol: Document 02/05/21 15:20 AB (Rec: 02/05/21 16:50 AB [id number]) Orientation Orientation/Cognition Level of Alertness Alert Orientation Name,Place,Situation Safety Awareness Decreased Safety Awareness Gross Range of Motion Lower Extremity ROM Assessment Within Functional Limits Impairments R knee flexion: ~ 60 deg Strength Lower Extremity Strength Assessment Right Impaired Hip 3+/5 Knee 3+/5 Coordination Assessment Gross Coordination Gross Coordination WNL Sensation Assessment Sensation Gross Sensation Right LE Impaired,Left LE Impaired Sensation Description Numbness Comments Sensation Comments slight numbness on BLE Muscle Tone Muscle Tone WNL Yes M6 PT-IP Treatment Start: 02/05/21 16:27 Freq: NEEDED Status: Active Protocol: Document 02/06/21 12:23 CLB (Rec: 02/06/21 13:52 CLB [id number]) Physical Therapy Treatment Exercises Exercises Ankle Pumps,Quad Sets,Heel Slides,Short Arc Quads Education Education Provided Precautions,Weight Bearing Status,Safety M7 PT-IP Assessment and Plan Start: 02/05/21 16:27 Freq: NEEDED Status: Active Protocol: Document 02/06/21 12:23 CLB (Rec: 02/06/21 13:52 CLB [id number]) PT Summary Assessment and Plan Potential Rehabilitation Potential Good Status of Condition at Evaluation Evolving Summary Impairments Pain,ROM,Strength,Balance, Coordination,Sensation,Tone, Cognition,Bed Mobility, Transfers,Gait,Activity Tolerance Progress Towards Goals Slow Progress due to Pain,Slow Progress due to Activity Tolerance Assessment Summary Pt improved gait distance to ~ 30ft with less pain than in the morning tx. Pt is requiring Mod A for sit-stand and cues for quad activation. Pt will need to improve sit- stand and increase gait distance before returning home . Goals Bed Mobility Goal Independent Transfer Goal Independent,Front Wheeled Walker Gait Goal Independent,Front Wheel Walker Gait Distance 150 Days to Meet Goals 5 Frequency of Treatment Frequency Of Treatment Twice a Day Treatment Plan Physical Therapy Treatment Plan Bed Mobility Training,Transfer Training,Gait Training, Therapeutic Exercise,Balance Retraining,Post Op Education, Discharge Planning,Hot or Cold Pack,Neuromuscular Re-ed, Coordination Retraining,Manual Therapy Other Recommendations and Next Treatment bed mobility, ther ex, Focus transfers and gait Precautions Other Precautions WBAT RLE Recommendations To Nursing Amount of Assist Needed 1 Person Assist Discharge Recommendations PT Discharge Recommendations Home with Assistance, Outpatient PT Transportation Needs at Discharge Private Vehicle
--- NOTE | 2021-02-06 14:37 | PC.NURSE ---
Per PT patient not safe for discharge home alone today, still requiring assistance with mobility and patient does not have someone at home to physically help her. PA was updated by physical therapy. Continue with patient's plan of care.
[2021-02-06] MEDS: METFORMIN XR 500 MG TABLET PO (17:23)
--- NOTE | 2021-02-06 19:27 | PC.NURSE ---
Addendum entered by Natali Fortune R.N. 02/06/21 23:07: Assisted to bathroom for void. Pt is slow to mobilize, but observes total knee replacement precautions. Returned to bed after refusing oral care at sink. BL calf scd's replaced. Has been medicated with oxycodone prior to mobilizing per pt request. Reinforced use of call light for needs. Pt resting quietly in bed with eyes closed without signs of distress or discomfort. No change in neurovascular status this evening shift. Original Note: Pt mostly dozing in recliner. Rouses easily to voice. Admits to very little pain to right knee 2/10 when still but states pain increases with movement/activity. Declines offers for narcotic pain medications at this time. Full sensation to RLE. Palpable pedal pulse to right foot with equally warm and pink extremities and brisk capillary refill to right toes. Aquacel dressing to right knee is dry and intact. Ice to site. Encouraged I.S. use and pt reports is able to use to just under 2000. Encouraged to call for needs/wants. Encouraged ankle waving and pt provides return demonstration.
[2021-02-07] MEDS: IBUPROFEN 400 MG TABLET PO ×3 (00:06→09:07)
[2021-02-07 05:00] VITALS: BP 140/55; PULSE 80; RESP 16; TEMP 36.1; O2SAT 94
[2021-02-07] MEDS: LEVOTHYROXINE 100 MCG TABLET PO (05:46)
[2021-02-07] MEDS: OXYCODONE IR 5 MG TABLET PO (06:38)
[2021-02-07 07:53] VITALS: PULSE 80; RESP 16; O2SAT 94
[2021-02-07 08:00] VITALS: BP 131/56; PULSE 78; RESP 18; TEMP 36.5; O2SAT 93
[2021-02-07] MEDS: ASPIRIN EC 81 MG TABLET PO (09:07)
[2021-02-07] MEDS: allopurinoL 300 MG TABLET PO (09:07)
[2021-02-07 09:08] VITALS: BP 140/55; PULSE 80
[2021-02-07] MEDS: lisinopriL 10 MG TABLET PO (09:08)
[2021-02-07] MEDS: DOCUSATE 100 MG CAPSULE PO (09:08)
[2021-02-07] MEDS: ACETAMINOPHEN 325 MG TABLET 650 MG PO (09:09)
[2021-02-07] MEDS: SODIUM CHLORIDE 0.9% FLUSH 10 ML IV (09:12)
[2021-02-07] MEDS: DICLOFENAC 1% GEL 100 GM 1 APPLIC TOP ×2 (09:12→12:35)
[2021-02-07] MEDS: INSULIN ASPART 100 UNIT/ML INSULN PEN SUBCUT ×2 (09:13→12:33)
[2021-02-07] MEDS: AMLODIPINE 5 MG TABLET 10 MG PO (09:16)
--- NOTE | 2021-02-07 11:12 | PT.IPTN ---
Current Diagnoses Unilateral primary osteoarthritis, right knee (02/06/21) Surgery Performed Operation Date: 02/05/21 10:00 Actual Procedures p Total Knee Arthroplasty(Right) - Carter Urban MD Physical Therapy Treatment Note M2 PT-IP Current Condition Start: 02/05/21 16:27 Freq: NEEDED Status: Active Protocol: Document 02/05/21 15:20 AB (Rec: 02/05/21 16:50 AB [id number]) Physical Therapy Current Condition Current Condition Evaluation Date 02/05/21 Treatment Diagnosis s/p R TKA; difficulty in walking Onset Date 02/05/21 Weight Bearing Status Weight Bearing Status Weight Bear as Tolerated Allowed Weight Bearing Amount (enter % RLE WBAT or #) (%) M3 PT-IP Subjective Start: 02/05/21 16:27 Freq: NEEDED Status: Active Protocol: Document 02/07/21 11:12 DLM (Rec: 02/07/21 13:43 DLM [id number]) Subjective Physical Therapy Visit Type Type Treatment Note Visit Start Time 10:15 Visit Stop Time 11:12 Total Visit Minutes 57 Number of CEMENTER HELPER Visits 0 Physical Therapy Visit Comments Patient Comments She would like to stay in the hospital another day but concerned about paying for it Patient Goals get stronger Therapy Pain Assessment Pain When Pain Assessed After Treatment Pain Present Pain Present Pain Reported Location Right Knee Intensity 3 Scale Used Numeric (0 - 10) Description Aching Pain Behaviors Guarding,Moaning Pain Management Techniques Apply Cold,Elevation M4 PT-IP Mobility and Gait Start: 02/05/21 16:27 Freq: NEEDED Status: Active Protocol: Document 02/07/21 11:12 DLM (Rec: 02/07/21 13:43 DLM [id number]) PT-Bed Mobility Assessment Scooting Scooting to Edge of Bed Independent PT-Transfer Assessment Sit to and From Stand Sit to and from Stand Standby Assistance,Use of Upper Extremities Equipment Transfer Assistive Device Gait Belt,Front Wheeled Walker Transfers Transfer Destination Chair,Toilet Transfer Technique Stand Step Pivot Transfer Ability Level of Assist Standby Assistance,Use of Upper Extremities Gait Assessment Gait Gait Assistance Required: Standby Assistance Distance (Feet) 30 Able to Maintain Weight Bearing Status Yes During Gait Assistive Devices Assistive Device Gait Belt,Front Wheeled Walker Gait Deviations General Gait Pattern Antalgic,Decreased Stride Length Factors Limiting Gait Function Factors Limiting Gait Function Decreased Activity Tolerance, Decreased Strength,Limited Range of Motion,Pain Stair Climbing Assessment Comments Stair Climbing Comments ramp to enter PT-Balance Assessment Sitting Balance and Reactions Static Sitting Balance Ability Good Dynamic Sitting Balance Ability Good Standing Balance and Reactions Static Standing Balance Ability Good Dynamic Standing Balance Ability Fair Device Used FWW M5 PT-IP Objective Assessments Start: 02/05/21 16:27 Freq: NEEDED Status: Active Protocol: Document 02/07/21 11:12 DLM (Rec: 02/07/21 13:43 [facility] [id number]) Orientation Orientation/Cognition Level of Alertness Alert Orientation Name,Age,Birthday,Month,Date, Year,Day of Week,Place, Situation Language Function Ability No Deficits Noted Safety Awareness Understands Safety Issues Gross Range of Motion Lower Extremity ROM Impairments right knee ext -20 degrees, flex 80 degrees seated Coordination Assessment Gross Coordination Gross Coordination WNL Sensation Assessment Sensation Gross Sensation Right LE Impaired,Left LE Impaired Sensation Description Numbness Muscle Tone Muscle Tone WNL Yes M6 PT-IP Treatment Start: 02/05/21 16:27 Freq: NEEDED Status: Active Protocol: Document 02/07/21 11:12 DLM (Rec: 02/07/21 13:43 [facility] [id number]) Physical Therapy Treatment Exercises Exercises Ankle Pumps,Quad Sets,Heel Slides,Straight Leg Raises, Short Arc Quads,Passive Knee Extension Hang,Seated Knee Flexion/Extension Education Education Provided Precautions,Weight Bearing Status,Safety M7 PT-IP Assessment and Plan Start: 02/05/21 16:27 Freq: NEEDED Status: Active Protocol: Document 02/07/21 11:12 DLM (Rec: 02/07/21 13:43 [facility] [id number]) PT Summary Assessment and Plan Summary Impairments Pain,ROM,Strength,Balance, Coordination,Sensation,Tone, Cognition,Bed Mobility, Transfers,Gait,Activity Tolerance Progress Towards Goals Slow Progress due to Pain,Slow Progress due to Activity Tolerance Assessment Summary She reports her pain is a little better today. She is slow with her mobility but shows good progress. She demonstrates safe gait pattern with the fWW. Pt has friends set up to help at discharge. Pt plans to sleep in her recliner until she is more confident in her bed mobility. She could benefit from home health services to assist with home safety issues in that environment. She is currently set up with out-pt PT. Goals Bed Mobility Goal Independent Transfer Goal Independent,Front Wheeled Walker Gait Goal Independent,Front Wheel Walker Gait Distance 150 Days to Meet Goals 5 Frequency of Treatment Frequency Of Treatment Twice a Day Treatment Plan Physical Therapy Treatment Plan Bed Mobility Training,Transfer Training,Gait Training, Therapeutic Exercise,Balance Retraining,Post Op Education, Discharge Planning,Hot or Cold Pack,Neuromuscular Re-ed, Coordination Retraining,Manual Therapy Recommendations To Nursing Amount of Assist Needed 1 Person Assist Discharge Recommendations PT Discharge Recommendations Home with Assistance,Home Health Transportation Needs at Discharge Private Vehicle
[2021-02-07 12:00] VITALS: BP 129/57; PULSE 70; RESP 18; TEMP 36.6; O2SAT 92
[2021-02-07] MEDS: OXYCODONE IR 10 MG TABLET PO (13:45)
--- NOTE | 2021-02-07 14:22 | PC.NURSE ---
A&Ox3, +CMS to RLE, Aquacel to R knee C/D/I. Cleared medically by ortho and by PT. With encouragement able to self transfer and ambulate FWW. Pt verbalizes understanding of medications picking up at [facility], activity, follow up appointments. POULTRY CULLER escorted patient to private car with patient's close friends via wheelchair with all of belongings.
== END 2021-02-07 14:00 | disposition home or self-care (01) ==
LOC: OR 02-07 09:23 → AC 02-07 09:23
PROVIDERS: Admitting Provider Orthopaedic Surgery; PCP Nurse Practitioner Family; Referring Provider Orthopaedic Surgery; Visit Provider Orthopaedic Surgery
PROC: 0SRC0JZ Replacement of Right Knee Joint with Synthetic Substitute, Open Approach (ICD-10-PCS; CPT 27447; principal; 2021-02-05 10:00)
DX: M17.11 Unilateral primary osteoarthritis, right knee (principal); I10 Essential (primary) hypertension; E11.9 Type 2 diabetes mellitus without complications; E03.9 Hypothyroidism, unspecified; E66.01 Morbid (severe) obesity due to excess calories; Z68.41 Body mass index [BMI] 40.0-44.9, adult; Z79.84 Long term (current) use of oral hypoglycemic drugs
CPT/HCPCS: 27447; 36415; 73560; 82962; 85014; 85018; 97110; 97116; 97162; 97530; C1776; G0378; C9290; J0690; J2405; J2704; J3010

== ENCOUNTER → 2021-08-25 09:43 | Outpatient (CLI) | payer MEDICARE, OTHER, SELFPAY ==
[2021-02-05 16:13] VITALS: BMI 30.5
[2021-08-25 11:34] LABS: Hematocrit 40.2 % (36-46); Hemoglobin 13.6 g/dL (12.0-16.0); Mean Corpuscular HGB Conc 33.9 % (30-36); Mean Corpuscular Hemoglobin 30.6 PG (26-34); Mean Corpuscular Volume 90.2 fL (80-100); Platelet Count 197 X10^3/uL (150-400); Red Blood Cell Count 4.46 X10^6/uL (4.0-5.2); Red Cell Distribution Width 14.7 % (11.6-14.8); White Blood Cell Count 5.5 X10^3/uL (4.5-11.0)
[2021-08-25 12:05] LABS: Hemoglobin A1C% w Est Avg Glu 6.2 % (4.0-6.0)
[2021-08-25 12:11] LABS: Alanine Aminotransferase 23 IU/L (<35); Albumin 3.9 g/dL (3.5-5.0); Albumin Globulin Ratio 1.6 (1.0-2.8); Alkaline Phosphatase 111 U/L (38-126); Aspartate Aminotransferase 25 IU/L (14-36); BUN Creatinine Ratio 23.3 (6-22); Bilirubin Total 0.6 mg/dL (0.2-1.3); Blood Urea Nitrogen 24 mg/dL (7-17); Carbon Dioxide 23 mmol/L (22-32); Chloride 103 mmol/L (98-107); Estimated Glomerular Filt Rate 51.8 mL/min (>60); Globulin 2.4 g/dL (1.7-4.1); Glucose 136 mg/dL (80-110); HEMOLYSIS < 15 (0-50); Potassium 4.3 mmol/L (3.4-5.1); Sodium 136 mmol/L (137-145); Total Protein 6.3 g/dL (6.3-8.2)
[2021-08-25 12:28] LABS: Free T4, Direct Thyroxine 1.71 ng/dL (0.78-2.19)
[2021-08-25 12:42] LABS: Thyroid Stimulating Hormone 2.16 uIU/mL (0.47-4.68)
== END ==
PROVIDERS: PCP Nurse Practitioner Family; Referring Provider Nurse Practitioner Family; Visit Provider Nurse Practitioner Family
DX: E03.9 Hypothyroidism, unspecified (principal); E11.9 Type 2 diabetes mellitus without complications; I10 Essential (primary) hypertension; Z00.00 Encounter for general adult medical examination without abnormal findings
CPT/HCPCS: 36415; 80053; 83036; 84439; 84443; 85027

== ENCOUNTER → 2021-10-07 12:57 | Outpatient (CLI) | payer MEDICARE, OTHER, SELFPAY ==
[2021-02-05 16:13] VITALS: BMI 30.5
--- NOTE | 2021-10-07 | DI.MG.S_ITS ---
BILATERAL DIGITAL SCREENING MAMMOGRAM 3D/2D WITH CAD: 10/07/2021 CLINICAL: Routine screening. Family history of breast cancer. Comparison is made to exams dated: 10/02/2020 mammogram, 09/30/2019 mammogram, and 09/28/2018 mammogram - [facility]. There are scattered fibroglandular elements in both breasts. Current study was also evaluated with a Computer Aided Detection (CAD) system. There are benign calcifications in both breasts. No significant masses, calcifications, or other findings are seen in either breast. There has been no significant interval change. IMPRESSION: BENIGN There is no mammographic evidence of malignancy. A 1 year screening mammogram is recommended. This exam was interpreted at Station ID: [id number]. NOTE: For mammograms, a report in lay terms will be sent to the patient. Approximately 15% of breast malignancies will not be visualized mammographically. In the management of a palpable breast mass, a negative mammogram must not discourage biopsy of a clinically suspicious lesion. Electronically Signed By: Sanchez Sim acr/joe:10/07/2021 15:46:57 letter sent: Normal Exam ACR BI-RADS Category 2: Benign Finding(s) [id number]
== END ==
PROVIDERS: PCP Nurse Practitioner Family; Referring Provider Nurse Practitioner Family; Visit Provider Nurse Practitioner Family
DX: Z12.31 Encounter for screening mammogram for malignant neoplasm of breast (principal); Z80.3 Family history of malignant neoplasm of breast
CPT/HCPCS: 77063; 77067

== ENCOUNTER → 2022-09-12 09:16 | Outpatient (CLI) | payer MEDICARE, OTHER, SELFPAY ==
[2021-02-05 16:13] VITALS: BMI 30.5
[2022-09-12 10:13] LABS: Hemoglobin A1C% w Est Avg Glu 6.6 % (4.0-6.0)
[2022-09-12 10:40] LABS: BUN Creatinine Ratio 29.3 (6-22); Blood Urea Nitrogen 29 mg/dL (7-17); Carbon Dioxide 23 mmol/L (22-32); Chloride 100 mmol/L (98-107); Cholesterol 155 mg/dL (140-199); Estimated Glomerular Filt Rate 58 mL/min (>60); Glucose 154 mg/dL (80-110); HDL Cholesterol 56 mg/dL (40-60); HEMOLYSIS < 15 (0-50); LDL Cholesterol Calculated 71 mg/dL (<100); Potassium 4.4 mmol/L (3.4-5.1); Sodium 134 mmol/L (137-145); Triglycerides 138 mg/dL (35-150)
[2022-09-12 12:11] LABS: Microalbumin Urine Random 2.2 mg/dL (0-1.6)
== END ==
PROVIDERS: PCP Family Medicine; Referring Provider Family Medicine; Visit Provider Family Medicine
DX: E11.9 Type 2 diabetes mellitus without complications (principal); E03.9 Hypothyroidism, unspecified; I10 Essential (primary) hypertension; Z12.11 Encounter for screening for malignant neoplasm of colon
CPT/HCPCS: 36415; 80048; 80061; 82043; 82570; 83036

== ENCOUNTER → 2022-09-14 10:08 | Outpatient (CLI) | payer MEDICARE, OTHER, SELFPAY ==
[2021-02-05 16:13] VITALS: BMI 30.5
[2022-09-15 12:32] LABS: Fecal Immunochemical Test Negative (Negative)
== END ==
PROVIDERS: PCP Family Medicine; Referring Provider Family Medicine; Visit Provider Family Medicine
DX: E03.9 Hypothyroidism, unspecified (principal); E11.9 Type 2 diabetes mellitus without complications; I10 Essential (primary) hypertension; Z12.11 Encounter for screening for malignant neoplasm of colon
CPT/HCPCS: 82274

== ENCOUNTER → 2022-10-14 15:01 | Outpatient (CLI) | payer MEDICARE, OTHER, SELFPAY ==
[2021-02-05 16:13] VITALS: BMI 30.5
--- NOTE | 2022-10-14 15:02 | DI.MG.S_ITS ---
BILATERAL DIGITAL SCREENING MAMMOGRAM 3D/2D WITH CAD: 10/14/2022 CLINICAL: Routine screening. Family history of breast cancer. Comparison is made to exams dated: 10/07/2021 mammogram, 10/02/2020 mammogram, and 09/30/2019 mammogram - [facility]. There are scattered areas of fibroglandular density in both breasts (category b / 25%-50% glandular tissue). Current study was also evaluated with a Computer Aided Detection (CAD) system. There are benign calcifications in both breasts. No significant masses, calcifications, or other findings are seen in either breast. There has been no significant interval change. IMPRESSION: BENIGN There is no mammographic evidence of malignancy. A 1 year screening mammogram is recommended. Based on the Tyrer Cuzick model (a risk assessment model) the patient's lifetime risk is 2.7% and her 10 year risk is 0.0%. According to the ACR, ACS, and NCCN guidelines, an annual breast MRI exam along with mammogram is recommended if the patient's lifetime risk is 20% or greater. This exam was interpreted at Station ID: [id number]. NOTE: For mammograms, a report in lay terms will be sent to the patient. Approximately 15% of breast malignancies will not be visualized mammographically. In the management of a palpable breast mass, a negative mammogram must not discourage biopsy of a clinically suspicious lesion. Electronically Signed By: Freeman andrade/joe:10/14/2022 20:16:44 letter sent: Normal Exam ACR BI-RADS Category 2: Benign Finding(s) [id number]
== END ==
PROVIDERS: PCP Family Medicine; Referring Provider Family Medicine; Visit Provider Family Medicine
DX: Z12.31 Encounter for screening mammogram for malignant neoplasm of breast (principal); Z80.3 Family history of malignant neoplasm of breast
CPT/HCPCS: 77063; 77067

== ENCOUNTER → 2023-04-10 10:26 | Outpatient (CLI) | payer MEDICARE, OTHER, SELFPAY ==
[2021-02-05 16:13] VITALS: BMI 30.5
[2023-04-10 12:06] LABS: Add Manual Diff / Slide Review NO; Basophils Absolute Auto 100 /uL (0-100); Basophils Percent Auto 1.3 % (0-2); Eosinophils Absolute Auto 100 /uL (0-450); Eosinophils Percent Auto 2.1 % (2-4); Hematocrit 41.1 % (36-46); Lymphocytes Absolute Auto 1100 /uL (1100-4500); Lymphocytes Percent Auto 18.2 % (25-40); Mean Corpuscular Hemoglobin 31.4 PG (26-34); Mean Corpuscular Volume 92.3 fL (80-100); Monocytes Absolute Auto 400 /uL (0-900); Monocytes Percent Auto 6.7 % (3-14); Neutrophils Absolute Auto 4300 /uL (1500-7000); Neutrophils Percent Auto 71.7 % (50-75); Platelet Count 202 X10^3/uL (150-400); Red Blood Cell Count 4.45 X10^6/uL (4.0-5.2); Red Cell Distribution Width 14.3 % (11.6-14.8); White Blood Cell Count 6.1 X10^3/uL (4.5-11.0)
[2023-04-10 12:25] LABS: Alanine Aminotransferase 28 IU/L (<35); Albumin 3.9 g/dL (3.5-5.0); Albumin Globulin Ratio 1.5 (1.0-2.8); Alkaline Phosphatase 119 U/L (38-126); Aspartate Aminotransferase 27 IU/L (14-36); BUN Creatinine Ratio 25.3 (6-22); Bilirubin Total 0.4 mg/dL (0.2-1.3); Blood Urea Nitrogen 20 mg/dL (7-17); Carbon Dioxide 26 mmol/L (22-32); Chloride 104 mmol/L (98-107); Estimated Glomerular Filt Rate > 60 mL/min (>60); Globulin 2.6 g/dL (1.7-4.1); Glucose 152 mg/dL (80-110); HEMOLYSIS < 15 (0-50); Potassium 4.1 mmol/L (3.4-5.1); Sodium 136 mmol/L (137-145); Total Protein 6.5 g/dL (6.3-8.2)
[2023-04-11 07:14] LABS: Labcorp Hemoglobin (Hb) A1c 6.6 % (4.8-5.6)
== END ==
PROVIDERS: PCP Family Medicine; Referring Provider Family Medicine; Visit Provider Family Medicine
DX: E11.9 Type 2 diabetes mellitus without complications (principal); I10 Essential (primary) hypertension
CPT/HCPCS: 36415; 80053; 83036; 85025

== ENCOUNTER → 2023-09-08 08:42 | Outpatient (CLI) | payer MEDICARE, OTHER, SELFPAY ==
[2021-02-05 16:13] VITALS: BMI 30.5
[2023-09-08 10:13] LABS: Creatinine Urine Random 79.7 mg/dL; Protein (Total) Urine Random 7 mg/dL (0-12); Protein Creatinine Ratio Urine 0.08 GRAM/24H
[2023-09-08 10:18] LABS: Hemoglobin A1C% w Est Avg Glu 6.8 % (4.0-6.0)
[2023-09-08 10:43] LABS: Alanine Aminotransferase 25 IU/L (<35); Albumin 3.9 g/dL (3.5-5.0); Albumin Globulin Ratio 1.6 (1.0-2.8); Alkaline Phosphatase 106 U/L (38-126); Aspartate Aminotransferase 27 IU/L (14-36); BUN Creatinine Ratio 25.3 (6-22); Bilirubin Total 0.8 mg/dL (0.2-1.3); Blood Urea Nitrogen 21 mg/dL (7-17); Calcium 9.5 mg/dL (8.4-10.2); Carbon Dioxide 24 mmol/L (22-32); Chloride 102 mmol/L (98-107); Cholesterol 161 mg/dL (140-199); Estimated Glomerular Filt Rate > 60 mL/min (>60); Globulin 2.5 g/dL (1.7-4.1); Glucose 133 mg/dL (80-110); HDL Cholesterol 63 mg/dL (40-60); HEMOLYSIS < 15 (0-50); LDL Cholesterol Calculated 70 mg/dL (<100); Potassium 4.3 mmol/L (3.4-5.1); Sodium 135 mmol/L (137-145); Total Protein 6.4 g/dL (6.3-8.2); Triglycerides 142 mg/dL (35-150)
[2023-09-08 11:13] LABS: Thyroid Stimulating Hormone 1.66 uIU/mL (0.47-4.68)
== END ==
PROVIDERS: PCP Family Medicine; Referring Provider Family Medicine; Visit Provider Family Medicine
DX: E11.9 Type 2 diabetes mellitus without complications (principal); I10 Essential (primary) hypertension; E03.9 Hypothyroidism, unspecified
CPT/HCPCS: 36415; 80053; 80061; 82570; 83036; 84156; 84443

== ENCOUNTER → 2023-10-19 14:20 | Outpatient (CLI) | payer MEDICARE, OTHER, SELFPAY ==
[2021-02-05 16:13] VITALS: BMI 30.5
--- NOTE | 2023-10-19 14:22 | DI.MG.S_ITS ---
BILATERAL DIGITAL SCREENING MAMMOGRAM 3D/2D WITH CAD: 10/19/2023 CLINICAL: Routine screening. Family history of breast cancer. Comparison is made to exams dated: 10/14/2022 mammogram, 10/07/2021 mammogram, and 10/02/2020 mammogram - [facility]. There are scattered areas of fibroglandular density in both breasts (category b / 25%-50% glandular tissue). Current study was also evaluated with a Computer Aided Detection (CAD) system. There are benign calcifications in both breasts. No significant masses, calcifications, or other findings are seen in either breast. There has been no significant interval change. IMPRESSION: BENIGN There is no mammographic evidence of malignancy. A 1 year screening mammogram is recommended. Based on the Tyrer Cuzick model (a risk assessment model) the patient's lifetime risk is 2.3% and her 10 year risk is 0.0%. According to the ACR, ACS, and NCCN guidelines, an annual breast MRI exam along with mammogram is recommended if the patient's lifetime risk is 20% or greater. This exam was interpreted at Station ID: [id number]. NOTE: For mammograms, a report in lay terms will be sent to the patient. Approximately 15% of breast malignancies will not be visualized mammographically. In the management of a palpable breast mass, a negative mammogram must not discourage biopsy of a clinically suspicious lesion. Electronically Signed By: Tyrel patel/joe:10/19/2023 15:04:45 letter sent: Normal Exam ACR BI-RADS Category 2: Benign Finding(s) [id number]
== END ==
PROVIDERS: PCP Family Medicine; Referring Provider Family Medicine; Visit Provider Family Medicine
DX: Z12.31 Encounter for screening mammogram for malignant neoplasm of breast (principal); Z80.3 Family history of malignant neoplasm of breast
CPT/HCPCS: 77063; 77067

== ENCOUNTER → 2023-12-13 09:44 | Outpatient (CLI) | payer MEDICARE, OTHER, SELFPAY ==
[2021-02-05 16:13] VITALS: BMI 30.5
[2023-12-13 10:48] LABS: BUN Creatinine Ratio 28.6 (6-22); Blood Urea Nitrogen 24 mg/dL (7-17); Calcium 9.4 mg/dL (8.4-10.2); Carbon Dioxide 24 mmol/L (22-32); Chloride 105 mmol/L (98-107); Estimated Glomerular Filt Rate > 60 mL/min (>60); Glucose 135 mg/dL (80-110); HEMOLYSIS < 15 (0-50); Potassium 4.3 mmol/L (3.4-5.1); Sodium 135 mmol/L (137-145)
[2023-12-13 16:37] LABS: Creatinine Urine Random 101.8 mg/dL; Protein (Total) Urine Random 8 mg/dL (0-12); Protein Creatinine Ratio Urine 0.07 GRAM/24H
[2023-12-15 11:26] LABS: x Labcorp Estim. Avg Glu (eAG) 128 mg/dL (.); x Labcorp Hemoglobin A1c 6.1 % (4.8-5.6)
== END ==
PROVIDERS: PCP Family Medicine; Referring Provider Family Medicine; Visit Provider Family Medicine
DX: E11.40 Type 2 diabetes mellitus with diabetic neuropathy, unspecified (principal); E66.01 Morbid (severe) obesity due to excess calories; E11.69 Type 2 diabetes mellitus with other specified complication; M1A.9XX0 Chronic gout, unspecified, without tophus (tophi); E11.9 Type 2 diabetes mellitus without complications; I10 Essential (primary) hypertension
CPT/HCPCS: 36415; 80048; 82570; 83036; 84156

== ENCOUNTER → 2024-03-20 12:56 | Outpatient (CLI) | payer MEDICARE, OTHER, SELFPAY ==
[2021-02-05 16:13] VITALS: BMI 30.5
[2024-03-20 13:19] LABS: Appearance Urine UA CLEAR; Bilirubin Urine UA NEGATIVE (NEGATIVE); Color Urine UA YELLOW; Glucose Urine UA NEGATIVE (Negative); Ketones Urine UA TRACE (NEGATIVE); Leukocyte Esterase Urine UA 3+ (NEGATIVE); Nitrite Urine UA NEGATIVE (Negative); Occult Blood Urine UA 1+ (Negative); Protein Urine UA 2+ (Negative); Urobilinogen Urine UA 0.2 E.U./dL (0.2)
[2024-03-20 13:22] LABS: pH Urine UA 5.5 (4.5-8.0)
[2024-03-20 13:42] LABS: Bacteria Urine Few (2-10); Culture Indicated Urine Specimen Cultured; RBC Urine 1-5/HPF (0-5/HPF); Squamous Epithelial Cell Urine 1-5 /HPF (0-5/HPF); Urine Volume 10mL (spun); WBC Urine >100/HPF (0-5/HPF)
[2024-03-20 16:31] LABS: Creatinine Urine Random 109.42 mg/dL
[2024-03-20 18:35] LABS: Microalbumin Urine Random 35.4 mg/dL (0-1.6)
== END ==
PROVIDERS: PCP Family Medicine; Referring Provider Family Medicine; Visit Provider Family Medicine
DX: I10 Essential (primary) hypertension (principal); R30.0 Dysuria
CPT/HCPCS: 81001; 82043; 82570; 87077; 87086; 87186

== ENCOUNTER → 2024-10-21 13:53 | Outpatient (CLI) | payer MEDICARE, OTHER, SELFPAY ==
[2021-02-05 16:13] VITALS: BMI 30.5
--- NOTE | 2024-10-21 13:54 | DI.MG.S_ITS ---
BILATERAL DIGITAL SCREENING MAMMOGRAM 3D/2D WITH CAD: 10/21/2024 CLINICAL: Routine screening. Family history of breast cancer. Comparison is made to exams dated: 10/19/2023 mammogram, 10/14/2022 mammogram, 10/07/2021 mammogram, 10/02/2020 mammogram, 09/30/2019 mammogram, and 09/28/2018 mammogram - [facility]. There are scattered areas of fibroglandular density (category b / 25%-50% glandular tissue). Current study was also evaluated with a Computer Aided Detection (CAD) system. There are benign calcifications in both breasts. No significant masses, calcifications, or other findings are seen in either breast. There has been no significant interval change. IMPRESSION: BENIGN There is no mammographic evidence of malignancy. A 1 year screening mammogram is recommended. Based on the Tyrer Cuzick model (a risk assessment model) the patient's lifetime risk is 1.1% and her 10 year risk is 0.0%. According to the ACR, ACS, and NCCN guidelines, an annual breast MRI exam along with mammogram is recommended if the patient's lifetime risk is 20% or greater. This exam was interpreted at Station ID: [id number]. NOTE: For mammograms, a report in lay terms will be sent to the patient. Approximately 15% of breast malignancies will not be visualized mammographically. In the management of a palpable breast mass, a negative mammogram must not discourage biopsy of a clinically suspicious lesion. Electronically Signed By: Rayne Villalba M.D., Ph.D. carlos/joe:10/22/2024 07:08:35 letter sent: Normal Exam ACR BI-RADS Category 2: Benign
== END ==
PROVIDERS: PCP Family Medicine; Referring Provider Family Medicine; Visit Provider Family Medicine
DX: Z12.31 Encounter for screening mammogram for malignant neoplasm of breast (principal); Z80.3 Family history of malignant neoplasm of breast
CPT/HCPCS: 77063; 77067

== ENCOUNTER → 2024-12-18 09:42 | Outpatient (CLI) | payer MEDICARE, OTHER, SELFPAY ==
[2021-02-05 16:13] VITALS: BMI 30.5
[2024-12-18 10:31] LABS: Add Manual Diff / Slide Review NO; Basophils Absolute Auto 100 /uL (0-100); Basophils Percent Auto 1.1 % (0-2); Eosinophils Absolute Auto 300 /uL (0-450); Eosinophils Percent Auto 4.9 % (2-4); Hematocrit 40.6 % (36-46); Hemoglobin 13.6 g/dL (12.0-16.0); Lymphocytes Absolute Auto 1500 /uL (1100-4500); Lymphocytes Percent Auto 22.5 % (25-40); Mean Corpuscular HGB Conc 33.6 % (30-36); Mean Corpuscular Volume 92.4 fL (80-100); Monocytes Absolute Auto 500 /uL (0-900); Monocytes Percent Auto 7.2 % (3-14); Neutrophils Absolute Auto 4300 /uL (1500-7000); Neutrophils Percent Auto 64.3 % (50-75); Platelet Count 217 X10^3/uL (150-400); Red Blood Cell Count 4.39 X10^6/uL (4.0-5.2); Red Cell Distribution Width 15.1 % (11.6-14.8); White Blood Cell Count 6.7 X10^3/uL (4.5-11.0)
[2024-12-18 10:39] LABS: Hemoglobin A1C% w Est Avg Glu 5.6 % (4.0-6.0)
[2024-12-18 10:43] LABS: Alanine Aminotransferase 22 IU/L (<35); Albumin 3.9 g/dL (3.5-5.0); Albumin Globulin Ratio 1.7 (1.0-2.8); Alkaline Phosphatase 111 U/L (38-126); Aspartate Aminotransferase 26 IU/L (14-36); BUN Creatinine Ratio 24.8 (6-22); Bilirubin Total 0.6 mg/dL (0.2-1.3); Blood Urea Nitrogen 31 mg/dL (7-17); Calcium 9.2 mg/dL (8.4-10.2); Carbon Dioxide 23 mmol/L (22-32); Chloride 104 mmol/L (98-107); Estimated Glomerular Filt Rate 43 mL/min (>60); Globulin 2.3 g/dL (1.7-4.1); Glucose 115 mg/dL (80-110); HEMOLYSIS < 15 (0-50); Potassium 4.3 mmol/L (3.4-5.1); Sodium 135 mmol/L (137-145); Total Protein 6.2 g/dL (6.3-8.2)
[2024-12-18 11:13] LABS: TSH w/ Reflex to FT4 0.95 uIU/mL (0.47-4.68)
== END ==
PROVIDERS: PCP Family Medicine; Referring Provider Family Medicine; Visit Provider Family Medicine
DX: E11.49 Type 2 diabetes mellitus with other diabetic neurological complication (principal); I10 Essential (primary) hypertension; E03.9 Hypothyroidism, unspecified
CPT/HCPCS: 36415; 80053; 83036; 84443; 85025

== ENCOUNTER → 2024-12-23 12:06 | Outpatient (CLI) | payer MEDICARE, OTHER, SELFPAY ==
[2021-02-05 16:13] VITALS: BMI 30.5
[2024-12-23 14:04] LABS: BUN Creatinine Ratio 25.2 (6-22); Blood Urea Nitrogen 26 mg/dL (7-17); Calcium 9.4 mg/dL (8.4-10.2); Carbon Dioxide 25 mmol/L (22-32); Chloride 102 mmol/L (98-107); Estimated Glomerular Filt Rate 55 mL/min (>60); Glucose 114 mg/dL (80-110); HEMOLYSIS 15 (0-50); Potassium 4.5 mmol/L (3.4-5.1); Sodium 135 mmol/L (137-145)
== END ==
PROVIDERS: PCP Family Medicine; Referring Provider Family Medicine; Visit Provider Family Medicine
DX: N17.9 Acute kidney failure, unspecified (principal); I10 Essential (primary) hypertension; R94.4 Abnormal results of kidney function studies
CPT/HCPCS: 36415; 80048

== ENCOUNTER → 2025-03-18 09:20 | Outpatient (CLI) | payer MEDICARE, OTHER, SELFPAY ==
[2021-02-05 16:13] VITALS: BMI 30.5
[2025-03-18 10:34] LABS: Hemoglobin A1C% w Est Avg Glu 5.6 % (4.0-6.0)
[2025-03-18 10:43] LABS: Alanine Aminotransferase 22 IU/L (<35); Albumin 3.7 g/dL (3.5-5.0); Albumin Globulin Ratio 1.7 (1.0-2.8); Alkaline Phosphatase 124 U/L (38-126); Aspartate Aminotransferase 25 IU/L (14-36); BUN Creatinine Ratio 25.6 (6-22); Bilirubin Total 0.5 mg/dL (0.2-1.3); Blood Urea Nitrogen 22 mg/dL (7-17); Carbon Dioxide 24 mmol/L (22-32); Chloride 106 mmol/L (98-107); Estimated Glomerular Filt Rate > 60 mL/min (>60); Globulin 2.2 g/dL (1.7-4.1); Glucose 127 mg/dL (70-99); HEMOLYSIS < 15 (0-50); Potassium 4.5 mmol/L (3.4-5.1); Sodium 137 mmol/L (137-145); Total Protein 5.9 g/dL (6.3-8.2)
== END ==
LOC: LAB 09:23
PROVIDERS: PCP Family Medicine; Referring Provider Family Medicine; Visit Provider Family Medicine
DX: E11.49 Type 2 diabetes mellitus with other diabetic neurological complication (principal); I10 Essential (primary) hypertension
CPT/HCPCS: 36415; 80053; 83036

== ENCOUNTER → 2025-09-11 09:13 | Outpatient (CLI) | payer MEDICARE, OTHER, SELFPAY ==
[2021-02-05 16:13] VITALS: BMI 30.5
[2025-09-11 10:28] LABS: Hemoglobin A1C% w Est Avg Glu 6.0 % (4.0-6.0)
== END ==
PROVIDERS: PCP Family Medicine; Referring Provider Family Medicine; Visit Provider Family Medicine
DX: E11.40 Type 2 diabetes mellitus with diabetic neuropathy, unspecified (principal); E11.319 Type 2 diabetes mellitus with unspecified diabetic retinopathy without macular edema
CPT/HCPCS: 36415; 83036